=== PATIENT | female | born 1980 | race Caucasian/White ===

== ENCOUNTER 2017-01-08 12:26 | Emergency (ER) | payer OTHER ==
[2017-01-08 12:45] VITALS: BP 143/88; PULSE 87; TEMP 99.4; BMI 38.7
--- NOTE | 2017-01-08 13:23 | PDOC ---
History of Present Illness - History of Present Illness Initial Comments: 01/08/17 13:56 The patient is a 36 year old female, with a significant past medical history of kidney stones requiring lithotripsy and stent, who presents to the emergency department s/p sustaining a transverse laceration to the palmar aspect of her right thumb while at work at 12:15pm. The patient states she works as a dental assistant to the director and during a procedure which requires the temporary to required to be cut by a metal disc. She states her glove got stuck and the disc sliced her right thumb. She states that her patients blood may or may not have been present on the disc at the time she sustained the injury. She reports receiving HIV prophylaxis once in the past "many years ago." She reportedly felt ill for a few days following the treatment at that time, however, requests to be treated prophylactically considering she does not know the patient very well. She reports her last tetanus vaccine was about 10 years ago. She denies chest pain, shortness of breath, headache and dizziness. She denies fever, chills, nausea, vomit, diarrhea and constipation. She denies dysuria, frequency, urgency and hematuria. Allergies: NKDA <Layla Moreno - Last Filed: 01/08/17 13:56> - History of Present Illness Initial Comments: 01/09/17 07:19 Transverse laceration of the thumb, volar aspect, in the crease of the IPJ. Approximately 1 cm in length. Only the skin is involved. There is no bleeding. There is full flexion against resistance. There is no distal sensory deficit. There are no deep structures involved and no puncture evident. The wound was thoroughly scrubbed with saline, the skin was prepped with Betadine, local anesthesia was administered in the laceration was repaired using 4-0 nylon interrupted sutures. Patient tolerated the procedure well. The wound was dressed with bacitracin, 2 x 2, and tube gauze. Wound care instruction was reviewed. She is advised to follow-up if there is any sign of infection otherwise return to the ER for suture removal in one week. Fully ambulatory and in no pain upon discharge to follow-up as directed The patient requests HIV prophylaxis because her cut was sustained while doing dental work on a 60+-year-old man, his medical history is unknown. She was advised to attempt to contact the patient and request that he submit to hepatitis and HIV testing. She is uncertain whether be possible to contact the patient or whether he will consent to testing. As far she could tell, the patient appeared to be healthy and at no particular risk for disease. However, she requests HIV prophylaxis. The patient has an IUD, no missed menses, and denies the possibility of . She has had hepatitis immunizations and has tested HIV negative in the recent past, although she is not absolutely certain when. She has no medical problems and no active disease. She does not recall her last tetanus immunization The patient was counseled regarding HIV prophylaxis and referred to her primary physician, Dr. Ram, for further testing. Begun on PEP and instructed to discuss dosages and length of treatment with Dr. Ram. She agrees to follow-up within 2 days. Fully ambulatory and in no distress upon discharge to follow-up as directed. Patient appears completely reliable. <Sarmad Hernandez - Last Filed: 01/09/17 07:26> - General Chief Complaint: Injury Stated Complaint: RT THUMB LAC Time Seen by Provider: 01/08/17 12:44 Past History <Layla Moreno - Last Filed: 01/08/17 13:56> - Past Medical History Anemia: No Asthma: No Cancer: No Cardiac Disorders: No CVA: No COPD: No CHF: No Dementia: No Diabetes: No GI Disorders: No Disorders: Yes (KIDNEY STONES) HTN: No Hypercholesterolemia: No Kidney Stones: Yes Liver Disease: No Seizures: No Thyroid Disease: No - Surgical History Abdominal Surgery: No Appendectomy: No Cardiac Surgery: No Cholecystectomy: No Lung Surgery: No Neurologic Surgery: No Orthopedic Surgery: No - Immunization History Immunization Up to Date: No - Suicide/Smoking/Psychosocial Hx Smoking Status: No Smoking History: Former smoker Have you smoked in the past 12 months: No Number of Cigarettes Smoked Daily: 0 If you are a former smoker, when did you quit?: 5-10 yrs ago Information on smoking cessation initiated: No Hx Alcohol Use: No Drug/Substance Use Hx: No Substance Use Type: None Hx Substance Use Treatment: No <Sarmad Hernandez - Last Filed: 01/09/17 07:26> - Past Medical History Allergies/Adverse Reactions: Allergies Allergy/AdvReac Type Severity Reaction Status Date / Time No Known Drug Allergies Allergy Verified 01/08/17 12:46 Home Medications: Ambulatory Orders NK [No Known Home Medication] 01/08/17 Review of Systems - Review of Systems Able to Perform ROS?: Yes Comments:: 01/08/17 13:58 CONSTITUTIONAL: Absent: fever, chills, diaphoresis, generalized weakness, malaise, loss of appetite HEENT: Absent: rhinorrhea, nasal congestion, throat pain, throat swelling, difficulty swallowing, mouth swelling, ear pain, eye pain, visual Changes CARDIOVASCULAR: Absent: chest pain, syncope, palpitations, irregular heart rate, lightheadedness , peripheral edema MUSCULOSKELETAL: Absent: myalgia, arthralgia, joint swelling SKIN: (+) laceration to right thumb. Absent: rash, itching, pallor HEMATOLOGIC/IMMUNOLOGIC: Absent: easy bleeding, easy bruising, lymphadenopathy, frequent infections NEUROLOGIC: Absent: headache, focal weakness or paresthesia, dizziness, unsteady gait, seizure, mental status changes, bladder or bowel incontinence PSYCHIATRIC: Absent: anxiety, depression, suicidal or homicidal ideation, hallucinations <Layla Moreno - Last Filed: 01/08/17 13:56> *Physical Exam - Vital Signs Last Vital Signs Temp Pulse Resp BP Pulse Ox 99.4 F 87 20 143/88 100 01/08/17 12:27 01/08/17 12:27 01/08/17 12:27 01/08/17 12:27 01/08/17 12:27 - Physical Exam Comments: 01/08/17 13:59 GENERAL: Well developed, well nourished. Awake and alert. No acute distress. MUSCULOSKELETAL Normal range of motion at all joints. No bony deformities or tenderness. No CVA tenderness. EXTREMITIES: No cyanosis. No clubbing. No edema. No calf tenderness. SKIN: (+) there is a transverse, approximately 1.5cm, superficial laceration to the palmar aspect in the crease of right proximal 1st digit. no FB present. Warm and dry. Normal capillary refill. No rashes. No jaundice. NEUROLOGICAL: Alert, awake, appropriate. Cranial nerves 2-12 intact. No motor deficits in the upper extremities and lower extremities. Normoreflexic in the upper and lower extremities. Normal speech. Gait is normal without ataxia. <Layla Moreno - Last Filed: 01/08/17 13:56> - Vital Signs Last Vital Signs Temp Pulse Resp BP Pulse Ox 99.4 F 87 20 143/88 100 01/08/17 12:27 01/08/17 12:27 01/08/17 12:27 01/08/17 12:27 01/08/17 12:27 <Sarmad Hernandez - Last Filed: 01/09/17 07:26> Procedures - Laceration/Wound Repair Right Proximal 1st digit Wound Length: to 2.5 cm (1.5cm-2.0cm) Wound Explored: clean, no foreign body present Wound's Depth, Shape: superficial Irrigated w/ Saline: Yes Betadine Prep: Yes Anesthesia: 1% Lidocaine Wound Repaired With: Sutures Suture Size/Type: 4:0 Number of Sutures: 3 Layer Closure: No Sterile Dressing Applied: Yes <Layla Moreno - Last Filed: 01/08/17 13:56> *DC/Admit/Observation/Transfer - Attestations Scribe Attestion: 01/08/17 14:05 Documentation prepared by Layla Moreno, acting as medical art therapist for Sarmad Lima MD <Layla Moreno - Last Filed: 01/08/17 13:56> - Discharge Dispostion Admit: No <Sarmad Hernandez - Last Filed: 01/09/17 07:26> Diagnosis at time of Disposition: Exposure to blood Laceration of thumb Qualifiers: Encounter type: initial encounter Damage to nail status: without damage Foreign body presence: without foreign body Laterality: right Qualified Code(s) : S61.011A - Laceration without foreign body of right thumb without damage to nail, initial encounter - Discharge Dispostion Disposition: HOME Condition at time of disposition: Improved - Patient Instructions Printed Discharge Instructions: DI for Laceration Repair -- Finger Additional Instructions: See Dr. Ram your primary physician within 2 days for blood testing and further medication administration. Take medication administered today as directed. Try to have your patient tested for hepatitis and HIV. Take care of your wound as directed. Change the dressing in 2 days. Keep covered and use antibiotic ointment. If there is sign of infection, return to the ER. Otherwise return for suture removal in 7 days. - Post Discharge Activity Forms/Work/School Notes: Back to Work
[2017-01-08] MEDS ORDERED: HIV POST EXPOSURE PROPHYLAXIS KIT NR ONE (13:44)
[2017-01-08] MEDS ORDERED: DIPHTH,PERTUSS(ACELL),TET 0.5 ML DISP.SYRIN IM ONE (13:54)
[2017-01-08] MEDS ORDERED: HIV POST EXPOSURE PROPHYLAXIS KIT PO ONE (13:55)
== END 2017-01-08 14:21 | disposition home or self-care (01) ==
LOC: FER 12:26
PROC: 0HQFXZZ Repair Right Hand Skin, External Approach (ICD-10-PCS; principal; 2017-01-08)
PROC: 3E0234Z Introduction of Serum, Toxoid and Vaccine into Muscle, Percutaneous Approach (ICD-10-PCS; 2017-01-08)
DX: S61.011A Laceration without foreign body of right thumb without damage to nail, initial encounter (principal); Z77.21 Contact with and (suspected) exposure to potentially hazardous body fluids; Z87.891 Personal history of nicotine dependence; W27.8XXA Contact with other nonpowered hand tool, initial encounter; Y93.89 Activity, other specified; Y92.531 Health care provider office as the place of occurrence of the external cause; Y99.0 Civilian activity done for income or pay
CPT/HCPCS: 90715; 99282-25

== ENCOUNTER 2017-01-17 09:27 | Emergency (ER) | payer OTHER ==
[2017-01-17 09:31] VITALS: BP 119/80; PULSE 78; TEMP 98.8; BMI 39.7
--- NOTE | 2017-01-17 09:53 | PDOC ---
Suture Removal/Wound Check HPI - History of Present Illness Chief Complaint: Suture/Staple Removal(Here) Stated Complaint: SUTURE REMOVAL RT THUMB Time Seen by Provider: 01/17/17 09:35 - Onset of Previous Treatment Comment:: 01/17/17 09:50 Sutures were removed 2 right thumb. Wound is healed. No sign of infection. Dressed with bacitracin and Band-Aid. Numbness of the fingertip persists. Referred to Dr. Stephens for further evaluation. Past History - Past Medical History Allergies/Adverse Reactions: Allergies Allergy/AdvReac Type Severity Reaction Status Date / Time No Known Drug Allergies Allergy Verified 01/17/17 09:28 Home Medications: Ambulatory Orders Amoxicillin/Potassium Clav [Amox-Clav 875-125 mg Tablet] 1 each PO BID 01/17/17 Anemia: No Asthma: No Cancer: No Cardiac Disorders: No CVA: No COPD: No CHF: No Dementia: No Diabetes: No GI Disorders: No Disorders: Yes (KIDNEY STONES) HTN: No Hypercholesterolemia: No Kidney Stones: Yes Liver Disease: No Seizures: No Thyroid Disease: No - Surgical History Abdominal Surgery: No Appendectomy: No Cardiac Surgery: No Cholecystectomy: No Lung Surgery: No Neurologic Surgery: No Orthopedic Surgery: No - Immunization History Immunization Up to Date: No - Suicide/Smoking/Psychosocial Hx Smoking Status: No Smoking History: Former smoker Have you smoked in the past 12 months: No Number of Cigarettes Smoked Daily: 0 If you are a former smoker, when did you quit?: 5-10 yrs ago Information on smoking cessation initiated: No Hx Alcohol Use: No Drug/Substance Use Hx: No Substance Use Type: None Hx Substance Use Treatment: No *DC/Admit/Observation/Transfer Diagnosis at time of Disposition: Laceration of thumb Qualifiers: Encounter type: subsequent encounter Damage to nail status: without damage Foreign body presence: without foreign body Laterality: right Qualified Code(s) : S61.011D - Laceration without foreign body of right thumb without damage to nail, subsequent encounter; S61.011D - Laceration without foreign body of right thumb without damage to nail, subsequent encounter - Discharge Dispostion Disposition: HOME Condition at time of disposition: Improved Admit: No - Referrals Referrals: Thomas Stephens MD [Staff Physician] - - Patient Instructions Printed Discharge Instructions: DI for Suture Removal Additional Instructions: If any sign of infection develops, return to the ER or see primary physician for additional treatment See Dr. Stephens, hand specialist, for persistent numbness in the fingertip. This may be a nerve injury that can be treated.. - Post Discharge Activity Forms/Work/School Notes: Back to Work
== END 2017-01-17 10:03 | disposition home or self-care (01) ==
LOC: FER 09:27
DX: Z48.02 Encounter for removal of sutures (principal)
CPT/HCPCS: 99282-25

== ENCOUNTER 2017-12-23 08:35 | Emergency (ER) | payer OTHER ==
[2017-12-23 08:41] VITALS: TEMP 98.3; BMI 33.6
--- NOTE | 2017-12-23 09:37 | PDOC ---
History of Present Illness - General Chief Complaint: Pain Stated Complaint: PAIN Time Seen by Provider: 12/23/17 09:00 History Source: Patient Exam Limitations: No Limitations - History of Present Illness Travel History: No Initial Comments: 12/23/17 09:35 37y hx of kidney stones presents with L flank pain starting 3 days ago. The patient states the pain started gradually in the left flank, she has been taking Motrin without significant improvement however this morning the pain worsened dramatically so she came for evaluation. The patient states that the pain radiates to the left lower quadrant, is consistent with prior kidney stones that she had approx 1 year ago requiring lithotripsy. The patient denies any fever, chills, dysuria, nausea, vomiting, chest pain, shortness of breath. She states that she is to 3 days and her most current menses, so is unsure there is any hematuria. Uro: [place] Past History - Past Medical History Allergies/Adverse Reactions: Allergies Allergy/AdvReac Type Severity Reaction Status Date / Time No Known Drug Allergies Allergy Verified 12/23/17 08:36 Home Medications: Ambulatory Orders Cyclobenzaprine HCl [Flexeril 10 mg] 10 mg PO BID PRN #15 tablet 12/23/17 Ibuprofen 800 mg PO ASDIR PRN 12/23/17 Anemia: No Asthma: No Cancer: No Cardiac Disorders: No CVA: No COPD: No CHF: No Dementia: No Diabetes: No GI Disorders: No Disorders: Yes (KIDNEY STONES) HTN: No Hypercholesterolemia: No Kidney Stones: Yes Liver Disease: No Seizures: No Thyroid Disease: No - Surgical History Abdominal Surgery: No Appendectomy: No Cardiac Surgery: No Cholecystectomy: No Lung Surgery: No Neurologic Surgery: No Orthopedic Surgery: No - Immunization History Immunization Up to Date: No - Suicide/Smoking/Psychosocial Hx Smoking Status: No Smoking History: Never smoked Have you smoked in the past 12 months: No Number of Cigarettes Smoked Daily: 0 If you are a former smoker, when did you quit?: 5-10 yrs ago Hx Alcohol Use: No Drug/Substance Use Hx: No Substance Use Type: None Hx Substance Use Treatment: No Review of Systems - Review of Systems Able to Perform ROS?: Yes Comments:: 12/23/17 09:52 Constitutional - no reported Fever, Chills, HEENT: no reported vision changes, sore throat Respiratory: no reported cough, sob, hemoptysis Cardiac: no reported chest pain, palpitations, light headedness, leg swelling Abd/GI: +L flank pain no reported abd pain, nausea, vomiting, blood per rectum, melena, diarrhea : no reported dysuria, frequency, discharge Musculskelatal - no reported back pain, joint swelling skin - no reported bruising, erythema, rash neurological: no reported headache, numbness, focal weakness, tingling, ataxia, hematologic: no reported easy bruising, easy bleeding *Physical Exam - Vital Signs Last Vital Signs Temp Pulse Resp BP Pulse Ox 98.3 F 79 18 118/73 98 12/23/17 08:37 12/23/17 08:37 12/23/17 08:37 12/23/17 08:37 12/23/17 08:37 - Physical Exam Comments: 12/23/17 09:52 GENERAL: The patient is awake, alert, and fully oriented, uncomfortable appearing HEAD: Normocephalic, atraumatic. EYES: extraocular movements intact, sclera anicteric, conjunctiva clear. ENT: Normal voice, Moist mucous membranes. NECK: Normal range of motion, supple LUNGS: Breath sounds equal, clear to auscultation bilaterally. No wheezes, no rhonchi, no rales. HEART: Regular rate and rhythm, normal S1 and S2 without murmur, rub or gallop. ABDOMEN: Soft, nontender, normoactive bowel sounds. No guarding, no rebound. No CVA tenderness BACK: no focal midline tenderness, mild paraspinal tenderness on palpation on L lumbar region EXTREMITIES: Normal range of motion, NEUROLOGICAL: No facial assymetry, Normal speech, PSYCH: Normal mood, normal affect. SKIN: Warm, Dry, normal turgor, ED Treatment Course - LABORATORY CBC & Chemistry Diagram: 12/23/17 09:57 12/23/17 09:57 Medical Decision Making - Medical Decision Making 12/23/17 09:53 37-year-old female history of kidney stones presenting with 3 days of left flank pain consistent with prior kidney stones without any signs of infection. On exam the patient has an unremarkable exam although she does appear uncomfortable. Will obtain UA to rule out hematuria and infection, will check basic labs. will start w/ ultrasound, fluids and analgesia for symptomatically relief 10/01/18 16:20 labs rviewed US and CT reviewed no signs of hydro or ureteral stones suspect her pain may be msk in anture as it is reproducible on palpation and worsens with movement will dx with flexeril, nsaids will have pt fu with pmd return precautions wree discussed I discussed the physical exam findings, ancillary test results and final diagnoses with the patient. I answered all of the patient's questions. The patient was satisfied with the care received and felt comfortable with the discharge plan and treatment plan. The patient will call their primary care physician within 24 hours to arrange follow-up and will return to the Emergency Department with any new, persistent or worsening symptoms. *DC/Admit/Observation/Transfer Diagnosis at time of Disposition: Spasm of back muscles Back pain Qualifiers: Back pain location: low back pain Chronicity: acute Back pain laterality: left Sciatica presence: without sciatica Qualified Code(s): M54.5 - Low back pain - Discharge Dispostion Disposition: HOME Condition at time of disposition: Improved Decision to Admit order: No - Prescriptions Prescriptions: Cyclobenzaprine HCl [Flexeril 10 mg] 10 mg PO BID PRN #15 tablet PRN Reason: Back Pain - Referrals Referrals: Josie Ram MD [Primary Care Provider] - - Patient Instructions Printed Discharge Instructions: DI for Low Back Pain Additional Instructions: Return to the emergency department immediately with ANY new, persistent or worsening symptoms including numbness, tingling, weakness, fevers or any other concerns. Take ibuprofen (400mg)/tylenol(650mg) every 6 hours for 2 days. Take the flexeril if you still have pain/discomfort. Apply heat to your sore muscles. You MUST call and follow up with your doctor tomorrow for further evaluation of your symptoms. Your emergency department visit is not complete without a followup with your doctor for reevaluation.. Results were discussed with you. Please make sure your doctor reviews the results of your emergency evaluation. Print Language: SOUTH SUDANESE - Post Discharge Activity Forms/Work/School Notes: Back to Work
[2017-12-23] MEDS ORDERED: SODIUM CHLORIDE 1,000 ML IV ONE (09:39)
[2017-12-23] MEDS ORDERED: morphine CARPU-JECT 2 MG/1 ML DISP.SYRIN IVPUSH ONE (09:39)
[2017-12-23] MEDS ORDERED: MORPHINE SULFATE 2 MG/ML VIAL ONE (10:06)
[2017-12-23 10:31] LABS: BASO % 0.7 % (0-2.0); EOS % 1.6 % (0-4.5); HEMATOCRIT 39.4 % (32.4-45.2); HEMOGLOBIN 12.9 GM/dL (10.7-15.3); LYMPH % 37.6 % (8-40); MCH 28.6 pg (25.7-33.7); MCHC 32.7 g/dl (32.0-36.0); MEAN CELL VOLUME 87.6 fl (80-96); MEAN PLT VOLUME 8.2 fl (7.5-11.1); MONO % 6.9 % (3.8-10.2); NEUT % 53.2 % (42.8-82.8); PLATELET COUNT 334 K/MM3 (134-434); RDW 13.6 % (11.6-15.6); WHITE BLOOD COUNT 7.1 K/mm3 (4.0-10.0)
[2017-12-23 10:51] LABS: ALBUMIN 3.5 g/dl (3.4-5.0); ALK PHOS 61 U/L (45-117); ANION GAP 7 MMOL/L (8-16); BILIRUBIN,TOTAL 0.2 mg/dL (0.2-1); BLOOD UREA NITROGEN 10 mg/dL (7-18); CHLORIDE 109 mmol/L (98-107); CO2 24 mmol/L (21-32); CREATININE 0.6 mg/dL (0.55-1.3); GLUCOSE,RANDOM 95 mg/dL (74-106); POTASSIUM 4.2 mmol/L (3.5-5.1); SGOT/AST 14 U/L (15-37); SGPT/ALT 31 U/L (13-61); SODIUM 140 mmol/L (136-145)
[2017-12-23 10:54] LABS: URINE APPEARANCE CLEAR; URINE BILIRUBIN NEGATIVE (<2.0 mg/dL); URINE COLOR STRAW; URINE GLUCOSE (UA) NEGATIVE (NEGATIVE); URINE KETONE NEGATIVE (NEGATIVE); URINE NITRITE NEGATIVE (NEGATIVE); URINE PROTEIN NEGATIVE (NEGATIVE); URINE UROBILINOGEN NEGATIVE mg/dL (0.2-1.0)
[2017-12-23 10:55] LABS: URINE LEUK ESTERASE 1+ (NEGATIVE)
[2017-12-23] MEDS ORDERED: KETOROLAC TROMETHAMINE 30 MG/1 ML VIAL IVPUSH ONE (10:55)
[2017-12-23] MEDS ORDERED: KETOROLAC TROMETHAMINE 30 MG/1 ML VIAL ONE (10:58)
[2017-12-23 10:59] LABS: EPI CELLS RARE /HPF (FEW); URINE MUCUS RARE
[2017-12-23] MEDS ORDERED: morphine CARPU-JECT 4 MG/1 ML DISP.SYRIN IVPUSH ONE (13:29)
[2017-12-23] MEDS ORDERED: morphine SULFATE 4 MG/ML VIAL ONE (14:17)
[2017-12-23 17:01] VITALS: BP 99/55; PULSE 64
== END 2017-12-23 17:09 | disposition home or self-care (01) ==
LOC: JER 08:35
PROC: 3E0337Z Introduction of Electrolytic and Water Balance Substance into Peripheral Vein, Percutaneous Approach (ICD-10-PCS; principal; 2017-12-23)
PROC: 3E0333Z Introduction of Anti-inflammatory into Peripheral Vein, Percutaneous Approach (ICD-10-PCS; 2017-12-23)
PROC: 3E033NZ Introduction of Analgesics, Hypnotics, Sedatives into Peripheral Vein, Percutaneous Approach (ICD-10-PCS; 2017-12-23)
PROC: 3E033NZ Introduction of Analgesics, Hypnotics, Sedatives into Peripheral Vein, Percutaneous Approach (ICD-10-PCS; 2017-12-23)
DX: M62.830 Muscle spasm of back (principal); Z87.442 Personal history of urinary calculi
CPT/HCPCS: 36415; 74176; 76775-TC; 80053; 81003; 81015; 84703; 85025; 96361; 96374; 96375; 99282-25; J7030

== ENCOUNTER 2018-05-27 09:10 | Emergency (ER) | payer OTHER ==
[2018-05-27 09:26] VITALS: TEMP 98.1; BMI 39.1
[2018-05-27 10:20] LABS: BASO % 0.3 % (0-2.0); EOS % 0.6 % (0-4.5); HEMATOCRIT 37.2 % (32.4-45.2); HEMOGLOBIN 12.8 GM/dL (10.7-15.3); LYMPH % 31.4 % (8-40); MCH 30.6 pg (25.7-33.7); MCHC 34.6 g/dl (32.0-36.0); MEAN CELL VOLUME 88.6 fl (80-96); MONO % 6.4 % (3.8-10.2); NEUT % 61.3 % (42.8-82.8); PLATELET COUNT 349 K/MM3 (134-434); RDW 12.8 % (11.6-15.6); WHITE BLOOD COUNT 6.7 K/mm3 (4.0-10.0)
[2018-05-27 10:41] LABS: INR 0.97 (0.83-1.09); PROTHROMBIN TIME (PATIENT) 11.5 SEC (9.7-13.0)
[2018-05-27 10:56] LABS: ALBUMIN 3.6 g/dl (3.4-5.0); ALK PHOS 64 U/L (45-117); ANION GAP 8 MMOL/L (8-16); BILIRUBIN,TOTAL 0.4 mg/dL (0.2-1); BLOOD UREA NITROGEN 11 mg/dL (7-18); CHLORIDE 104 mmol/L (98-107); CO2 27 mmol/L (21-32); CREATININE 0.7 mg/dL (0.55-1.3); GLUCOSE,RANDOM 92 mg/dL (74-106); MAGNESIUM 2.2 mg/dL (1.8-2.4); POTASSIUM 4.1 mmol/L (3.5-5.1); SGOT/AST 13 U/L (15-37); SGPT/ALT 29 U/L (13-61); SODIUM 139 mmol/L (136-145)
[2018-05-27] MEDS ORDERED: KETOROLAC TROMETHAMINE 30 MG/1 ML VIAL IVPUSH ONE (12:19)
[2018-05-27] MEDS ORDERED: KETOROLAC TROMETHAMINE 30 MG/1 ML VIAL ONE (12:39)
[2018-05-27 13:20] VITALS: BP 114/76; PULSE 75
--- NOTE | 2018-05-27 13:45 | EKG ---
Test Reason : Blood Pressure : / mmHG Vent. Rate : 076 BPM Atrial Rate : 076 BPM P-R Int : 142 ms QRS Dur : 084 ms QT Int : 400 ms P-R-T Axes : 035 038 027 degrees QTc Int : 450 ms NORMAL SINUS RHYTHM NORMAL ECG WHEN COMPARED WITH ECG OF 30-NOV-2017 20:52, NO SIGNIFICANT CHANGE WAS FOUND Confirmed by MD Hayes Daniel ([id number]) on 05/27/2018 1:45:38 PM Referred By: Confirmed By:Richy Hayes MD
== END 2018-05-27 13:27 | disposition home or self-care (01) ==
LOC: JER 09:10
PROC: 3E0333Z Introduction of Anti-inflammatory into Peripheral Vein, Percutaneous Approach (ICD-10-PCS; principal; 2018-05-27)
DX: R07.89 Other chest pain (principal)
CPT/HCPCS: 36415; 71045-TC-FY; 80053; 82550; 83735; 84484; 84703; 85025; 85379; 85610; 93005; 93010; 93971-TC; 96374; 99285-25

== ENCOUNTER 2019-01-20 09:10 | Day surgery (SDC) | payer OTHER ==
[2019-01-19 16:01] VITALS: BMI 40.4
[2019-01-20 11:01] VITALS: TEMP 98.6
[2019-01-20 14:09] VITALS: BP 103/61; PULSE 67
--- NOTE | 2019-01-21 19:22 | PATH ---
Surgical Pathology Report Patient Name: GARY GASTON [facility]. Rec. #: [id number] /Age/Gender: 1980 (Age: 38) / F Account: [id number] Location: U-ENDOSCOPY Taken: 01/20/2019 Received: 01/20/2019 Reported: 01/21/2019 Physicians: Jung Davis D.O. Specimen(s) Received POLYPS RECTUM Clinical History Chronic constipation, rectal bleeding Postoperative diagnosis: Colon polyps, hemorrhoids Final Diagnosis RECTAL POLYPS, POLYPECTOMY: HYPERPLASTIC POLYP, TWO FRAGMENTS. Electronically Signed Josephine Tolentino M.D. Gross Description Received in formalin, labeled "polyps rectum" are 5 snider, irregular portions of soft tissue ranging from 0.1-0.5 cm. in greatest dimension. The specimens are submitted in toto in one cassette. DL/01/20/2019 saudi/01/20/2019
== END 2019-01-20 12:02 | disposition home or self-care (01) ==
LOC: JASU-ENDO 09:10
PROVIDERS: ATTEND Internal Medicine Gastroenterology
PROC: 0DBP8ZX Excision of Rectum, Via Natural or Artificial Opening Endoscopic, Diagnostic (ICD-10-PCS; principal; 2019-01-20 10:00)
DX: K92.1 Melena (principal); D12.8 Benign neoplasm of rectum; K64.8 Other hemorrhoids
CPT/HCPCS: 84703; 88305-TC

== ENCOUNTER 2019-12-27 19:30 | Emergency (ER) | payer OTHER ==
[2019-12-27 19:38] VITALS: BP 121/71; PULSE 89; TEMP 99.1; BMI 39.1
--- NOTE | 2019-12-27 19:40 | PDOC ---
History of Present Illness - General Chief Complaint: Pain Stated Complaint: abdominal cramping/left flank pain Time Seen by Provider: 12/27/19 19:36 History Source: Patient Exam Limitations: No Limitations - History of Present Illness Initial Comments: 12/27/19 19:54 This is an obese 39-year-old female with history of renal colic x2 in the past. Patient comes in complaining of intermittent left flank pain and more constant epigastric pain x2 days. Patient said pain is associated with some nausea and vomiting. Patient also said she has been having some diarrhea. Patient denies any fever or chills. Allergies: as per nursing notes Past Medical History: Renal colic as per HPI Social history: Lives with family. No smoking. No alcohol. No illicit drugs. Surgical history: None General: No fevers or chills, no weakness, no weight loss HEENT: No change in vision. No sore throat,. No ear pain CardioVascular: no chest discomfort. No shortness of breath Respiratory:No cough, or wheezing. Gastrointestinal: + nausea, +vomiting, + diarrhea no constipation, No rectal bleeding + left flank pain Genitourinary: No dysuria, hematuria, or frequency Musculoskeletal: No joint or muscle pain or swelling Neurologic: No headache, vertigo, dizziness or loss of consciousness Psychiatric: nor depression Skin: No rashes or easy bruising Endocrine: no increased thirst or abnormal weight change Allergic: no skin or latex allergy All other systems reviewed and normal Exam: General: Well-nourished well-developed individual, no acute distress HEENT: Throat: Normal, tonsils normal, no erythema or exudate Neck: Supple, no meningeal signs, no lymphadenopathy Eyes::Pupils equal reactive and round, extraocular motion intact Chest: Nontender to palpation Cardiac: S1-S2 normal, regular rate and rhythm, no murmurs rubs or gallops Respiratory: Lungs clear to auscultation bilateral Abdomen: Soft, nondistended, normal bowel sounds, there is some mild tenderness in the palpation left upper quadrant and epigastric area as well as left flank area., There is no guarding or rebound Extremities: Warm, dry, no cyanosis, clubbing, or edema Skin: No rashes Neuro: Alert and oriented x3, CN II - XII intact, nonfocal exam with normal strength, normal sensation, normal reflexes, normal gait, Psych: Normal mood and affect Assessment and plan: Work-up initiated including CBC, comp, UA, urine culture and urine . Patient given Toradol, Zofran, fluids and Pepcid. Patient's work-up was unremarkable including negative abdominal CT. Her daughter abdominal CT did have a 1 mm and a 2 mm stone in the medullary tissues of the kidneys but nothing in the collection system specifically no hydronephrosis hydroureter or any evidence of a stone within the collection system. 12/27/19 23:45 Past History - Medical History Allergies/Adverse Reactions: Allergies Allergy/AdvReac Type Severity Reaction Status Date / Time No Known Drug Allergies Allergy Verified 12/27/19 19:32 Home Medications: Ambulatory Orders Omeprazole 20 mg PO DAILY #15 tab.rap.dr 12/27/19 Ondansetron [Zofran *Odt*] 8 mg SL TID #12 od.tablet 12/27/19 Anemia: No Asthma: No Cancer: No Cardiac Disorders: No CVA: No COPD: No CHF: No Dementia: No Diabetes: No GI Disorders: Yes (CHRONIC CONSTIPATION, RECTAL BLEEDING) Disorders: Yes (KIDNEY STONES) HTN: No Hypercholesterolemia: No Kidney Stones: Yes Liver Disease: No Seizures: No Thyroid Disease: No - Surgical History Abdominal Surgery: No Appendectomy: No Cardiac Surgery: No Cholecystectomy: No Lung Surgery: No Neurologic Surgery: No Orthopedic Surgery: No - Reproductive History Is Patient Now?: No - Immunization History Immunization Up to Date: No - Psycho-Social/Smoking History Smoking Status: No Smoking History: Never smoked Have you smoked in the past 12 months: No Number of Cigarettes Smoked Daily: 0 If you are a former smoker, when did you quit?: 5-10 yrs ago Information on smoking cessation initiated: No - Substance Abuse Hx (Audit-C & DAST Scrn) How often the patient has a drink containing alcohol: Never Score: In Men: 4 or > Positive; In Women: 3 or > Positive: 0 Screen Result (Pos requires Nsg. Audit-10AR): Negative In the last yr the pt used illegal drug/Rx for NonMed reason: No Score: Yes response is considered Positive: 0 Screen Result (Positive result requires Nsg. DAST-10): Negative *Physical Exam - Vital Signs Last Vital Signs Temp Pulse Resp BP Pulse Ox 99.1 F 89 18 121/71 99 12/27/19 19:33 12/27/19 19:33 12/27/19 19:33 12/27/19 19:33 12/27/19 19:33 ED Treatment Course - LABORATORY CBC & Chemistry Diagram: 12/27/19 19:50 12/27/19 19:50 Discharge - Discharge Information Problems reviewed: Yes Clinical Impression/Diagnosis: Abdominal pain Qualifiers: Abdominal location: upper abdomen, unspecified Qualified Code(s): R10.10 - Upper abdominal pain, unspecified Condition: Stable Disposition: HOME - Admission No - Additional Discharge Information Prescriptions: Ondansetron [Zofran *Odt*] 8 mg SL TID #12 od.tablet - Follow up/Referral - Patient Discharge Instructions Additional Instructions: Take on omeprazole tablet a day for the pain, You can take Zofran 1 tablet oral dissolving as needed for the nausea take it as often as 3 times a day. Follow-up with your primary care doctor. Return to the emergency department immediately with ANY new, persistent or worsening symptoms. Continue any medications as previously prescribed by your physician. You should follow up with your primary doctor as soon as possible regarding today's emergency department visit. . Please make sure your doctor reviews the results of your emergency evaluation. Thank you for coming to the Emergency Department today for your care. It was a pleasure to see you today. Please note that your evaluation is INCOMPLETE until you follow-up with your doctor. - Post Discharge Activity
[2019-12-27] MEDS ORDERED: SODIUM CHLORIDE 1,000 ML IV ONE (19:45)
[2019-12-27] MEDS ORDERED: FAMOTIDINE 20 MG/50 ML IVPB 20 MG/50 ML MG IVPB ONE ×2 (19:53→19:55)
[2019-12-27] MEDS ORDERED: ONDANSETRON 4 MG/2 ML VIAL IVPB ONE (19:53)
[2019-12-27] MEDS ORDERED: KETOROLAC TROMETHAMINE 30 MG/1 ML VIAL IVPUSH ONE (19:53)
[2019-12-27] MEDS ORDERED: KETOROLAC TROMETHAMINE 30 MG/1 ML VIAL ONE (19:55)
[2019-12-27] MEDS ORDERED: ONDANSETRON 4 MG/2 ML VIAL ONE (19:56)
[2019-12-27] MEDS ORDERED: ONDANSETRON 4 MG/2 ML VIAL IVPUSH ONE (20:02)
--- OUTSIDE RECORDS SUMMARY | 2019-12-27 20:08 | XMS ---
:1980 Author Organization [facility] Care Team Providers Name Role Phone Dandre Costa MD Unavailable Unavailable Deepali Balbuena MD Unavailable Unavailable Androne, Gary S Unavailable Unavailable Androne, S Unavailable Unavailable Androne, S Unavailable Unavailable Androne, S Unavailable Unavailable Androne, S Unavailable Unavailable Androne, S Unavailable Unavailable Androne, S Unavailable Unavailable Androne, S Unavailable Unavailable DEVIKA Olivera Unavailable Unavailable MD Vipin Unavailable Unavailable Josué Unavailable Unavailable MD Tuan Unavailable Unavailable Tenisha, DO Unavailable Unavailable Anson Unavailable Unavailable Re-disclosure Warning The records that you are about to access may contain information from federally- assisted alcohol or drug abuse programs. If such information is present, then the following federally mandated warning applies: This information has been disclosed to you from records protected by federal confidentiality rules (42 CFR part 2). The federal rules prohibit you from making any further disclosure of this information unless further disclosure is expressly permitted by the written consent of the person to whom it pertains or as otherwise permitted by 42 CFR part 2. A general authorization for the release of medical or other information is NOT sufficient for this purpose. The Federal rules restrict any use of the information to criminally investigate or prosecute any alcohol or drug abuse patient.The records that you are about to access may contain highly sensitive health information, the redisclosure of which is protected by Article 27-F of the [facility] Public Health law. If you continue you may haveaccess to information: Regarding HIV / AIDS; Provided by facilities licensed or operated by the [facility] Office of Mental Health; or Provided by the [facility] Office for People With Developmental Disabilities. If such information is present, then the following [facility] mandated warning applies: This information has been disclosed to you from confidential records which are protected by state law. State law prohibits you from making any further disclosure of this information without the specific written consent of the person to whom it pertains, or as otherwise permitted by law. Any unauthorized further disclosure in violation of state law may result in a fine or shelter sentence or both. A general authorization for the release of medical or other information is NOT sufficient authorization for further disclosure. Advance Directives Directive Description Technical Education Teacher Nutrition Consultant Status Observation Data S ource(s) Description Advance No completed [place] [facility] Advance No completed [place] [facility] Allergies and Adverse Reactions Type Description Substance Reaction Status Data Source(s ) 3 NO KNOWN Clindamycin 150 NEXTGEN ALLERGIES MG Oral Tablet ([facility] [Clintabs] [facility]) Drug allergy No Known Drug No Known Drug NO KNOWN [place] Allergies Allergies [facility] No Known No Known No Known eCW3 ([place] Allergies Allergies [facility]) Encounters Encounter Providers Location Date Indications Data Source(s ) Attender: Gary 10/20/2019 [facility] ([facility] 12:00:00 AM ED Medical, ) Office Outpatient Attender: Adi 09/15/2019 10:50:00 NEXTGEN ([facility] GoldmanReferrer: Adi ARREAGA [facility] Medical - [facility]) Inpatient Attender: Dandre Costa 06/25/2019 04:42:00 PUI [place] MDAttender: Tariq PM EDT - 06/30/[address] [place] [address] ChaudhryAttender: Deepali 11:39:00 AM EDT Sree MDAttender: Beth Steven DOAdmitter: Deepali Balbuena MD PUI Patient discharged. Inpatient Attender: Enrique 02/12/2019 07:45:00 LUMBAR SPIN AL [place] Vipin MDAttender: AM EST - 02/16/2019 [facility] 05:41:00 PM EST MDAdmitter: Enrique Lew MDConsultant: Enrique Lew MD LUMBAR SPINAL STENOSIS Patient discharged. 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 IIV4 02/16/2019 completed influenza, injectable, [place] 01:47:00 PM EST quadrivalent, preserv Hos pital free New in 2011. IIV4 02/16/2019 completed influenza, injectable, [place] 01:47:00 PM EST quadrivalent, preserv Hos pital free Medications Medication Brand Start Product Dose Route Administrative Pharmacy [facility] Indications Reaction Description Data Name Date Form Instructions Instructions Source(s) Dextrometho Guaife 06/29/ LIQUID 10 mL ORAL active [place] rphan nesin/ 2019 [place] Hydrobromid Dextro 08:31: Hosp ital e 2 MG/ML / methor 00 AM Guaifenesin madden EDT 20 MG/ML Oral Solution Guaifenesin /Dextrometh orphan doxycycline Doxycy 06/29/ CAPSULE 100 ORAL active [place] hyclate 100 alcala 2020 mg [place] MG Oral Monohy 08:31: Hospital Capsule drate 00 AM [Vibramycin EDT ] Doxycycline Monohydrate Benzocaine Benzoc 06/29/ LOZENGE 1 ORAL active [place] 15 MG / nicole/M 2020 [place] Menthol 3.6 enth/C 08:31: Hosp ital MG Oral etylpy [address] Cl EDT [Cepacol Sore Throat Pain Relief] Benzocaine/ Menth/Cetyl pyrd Cl Acetaminoph Acetam 02/16/ TABLET 975 ORAL complet [place] en 325 MG inophe 2019 mg ed [place] Oral Tablet n 09:58: Hospit al 00 AM EST Oxycodone Oxycod 02/16/ TABLET mg ORAL complet W stephania Hydrochlori one 2018 ed [place] de 5 MG Hcl 09:58: Hospital Oral Tablet 00 AM Oxycodone EST Hcl Oxycodone Oxycod 02/16/ TABLET mg ORAL complet W stephania Hydrochlori one 2018 ed [place] de 5 MG Hcl 09:58: Hospital Oral Tablet 00 AM Oxycodone EST Hcl Diazepam 5 Diazep 02/16/ TABLET 5 mg ORAL complet [place] MG Oral am 2018 ed [place] Tablet 09:58: Hospital 00 AM EST Docusate Docusa 02/16/ CAPSULE 100 ORAL complet W stephania Sodium 100 te 2019 mg ed [place] MG Oral Sodium 09:58: Hospital Capsule 00 AM [DOK] EST Docusate Docusa 02/16/ CAPSULE 100 ORAL complet W stephania Sodium 100 te 2019 mg ed [place] MG Oral Sodium 09:58: Hospital Capsule 00 AM [DOK] EST Acetaminoph Acetam 02/16/ TABLET 975 ORAL complet [place] en 325 MG inophe 2019 mg ed [place] Oral Tablet n 09:58: Hospit al 00 AM EST Diazepam 5 Diazep 02/16/ TABLET 5 mg ORAL complet [place] MG Oral am 2018 ed [place] Tablet 09:58: Hospital 00 AM EST FLUTICASONE 01/27/ SPRAY 1 complet FLUTICA SONE MEDGEN (St NASAL:82523 2019 ed NASAL 12:00: Medical, 00 AM PC) EST POLYETHYLEN GOLYTE 12/22/ POWDER 30 complet GOLY TELY MEDGEN (St E GLYCOL LY:966 2018 FOR ed s [id number] [phone] 12:00: RECONSTI Medica l, MG/ML / 00 AM TUTION PC) Potassium EDT Chloride 0.01 MEQ/ML / Sodium Bicarbonate 0.02 MEQ/ML / Sodium Chloride 0.025 MEQ/ML / sodium sulfate 0.04 MEQ/ML Oral Solution [Golytely] GOLYTELY:96 6916 POLYETHYLEN GOLYTE 12/22/ POWDER 30 complet GOLY TELY MEDGEN (St E GLYCOL LY:966 2019 FOR ed Radhas [phone] 12:00: RECONSTI Medica l, MG/ML / 00 AM TUTION PC) Potassium EDT Chloride 0.01 MEQ/ML / Sodium Bicarbonate 0.02 MEQ/ML / Sodium Chloride 0.025 MEQ/ML / sodium sulfate 0.04 MEQ/ML Oral Solution [Golytely] GOLYTELY:96 6916 Bisacodyl 5 DULCOL 12/22/ DELAYED 6 complet DUL COLAX MEDGEN (St MG Delayed AX 2019 RELEASE ed LAXATIVE Lauren hn's Release LAXATI 12:00: TABLET Medica l, Oral Tablet VE:209 00 AM PC) [Dulcolax] 613 EDT DULCOLAX LAXATIVE:20 9613 Famotidine DUEXIS 10/06/ complet DUEXIS MEDGEN (St 26.6 MG / :38493 2018 ed [facility] Ibuprofen 70 12:00: Medical, 800 MG Oral 00 AM PC) Tablet EDT [Duexis] DUEXIS:1100 070 POLYETHYLEN 10/06/ POWDER 1 complet POLYET HYLENE MEDGEN (St E GLYCOL 2019 FOR ed GLYCOL 3350 [place] ford [id number] 12:00: RECONSTI Me dical, 00 AM TUTION PC) EDT Hydrocortis PROCTO 10/06/ CREAM 1 complet PROCT OZONE MEDGEN (St one 25 ZONE 2019 WITH ed HC [facility] MG/ML HC:144 12:00: APPLICAT Medica l, Topical 0936 00 AM OR PC) Cream EDT [Proctozone HC] PROCTOZONE HC:[id number] gabapentin GABAPE 08/26/ TABLET 30 complet GABAP ENTIN MEDGEN (St GABAPENTIN: NTIN:2 2019 ed Odalys [id number] 12:00: Medical, 00 AM PC) EDT NITROFURANT Macrob 08/21/ 1.0 active Macrobi d 100 eCW3 OIN, id 100 2019 {caps mg (Liu MACROCRYSTA mg 12:00: ule_w [place] LS 25 MG / 00 AM ith_f [facility] Nitrofurant EDT ood} Care) oin, Monohydrate 75 MG Oral Capsule [Macrobid] Macrobid 100 mg Fluconazole Flucon 1.0 active Flucona zole eCW3 150 MG Oral azole 2018 {tabl 150 MG (Hud son Tablet 150 MG 12:00: et} [place] 00 AM Health EDT Care) Metronidazo Flagyl .0 suspend Flagyl 500 eCW3 le 500 MG 500 MG 2017 {tabl ed MG (Liu Oral Tablet 12:00: et} [place] [Flagyl] 00 AM Health Flagyl 500 EDT Care) MG Fluconazole Flucon .0 suspend Flucon azole eCW3 150 MG Oral azole 2018 {tabl ed 150 MG (Hud son Tablet 150 MG 12:00: et} [place] 00 AM Health EDT Care) Fluconazole Flucon 1.0 suspend Flucon azole eCW3 150 MG Oral azole 2018 {tabl ed 150 MG (Hud son Tablet 150 MG 12:00: et} [place] 00 AM Health EDT Care) Paragard UNK 06/19/ active Paragard eCW 3 Intrauterin 2017 Intrauterine (Liu e Copper 12:00: Elbert 00 AM Health EDT Care) Meloxicam UNK 05/02/ suspend Meloxicam eCW3 2017 ed (Liu 12:00: [place] 00 AM Health EST Care) Gabapentin UNK 05/02/ active Gabapentin eCW3 (Once-Daily 2017 (Once-Daily) (Liu ) 12:00: [place] 00 AM Health EST Care) MULTIVITAMI UNK suspend MULTIVITAM IN eCW3 N ADULT ed ADULT ([facility]) Vi-Cert UNK suspend Vi-Cert C500 e CW3 C500 ed ([facility]) 21 DAY NuvaRi suspend NuvaRing eCW3 Ethinyl ng ed 0.12-0.015 ([facility] n Estradiol 0.12-0 MG/24HR [place] 0.701393 .015 Health MG/HR / MG/24H Care) Etonogestre R l 0.005 MG/HR Vaginal Ring [NuvaRing] NuvaRing 0.12-0.015 MG/24HR Iron UNK suspend Iron eCW3 ed ([facility]) VITAMIN D UNK suspend VITAMIN D eC W3 (ERGOCALCIF ed (ERGOCALCIFE (Liu MYRON) [facility]) Insurance Providers Payer name Policy type Policy ID Covered Covered republican's Policy P carissa / Coverage republican ID relationship to [place] Inf ormation type medellin [facility] MEDICAID [id number] SP [id number] [facility] [id number] 1 [id number] PLANS [facility] Medicaid [id number] 1 [id number] And Child [employer] Plus MEDICAID [id number] PT [id number] MEDICAID [id number] PT [id number] JZANUS SELF PAY PT INSURANCE [facility] [id number] PT [id number] [facility] [id number] PT [id number] [facility] MEDICAID [id number] SP [id number] [facility] MEDICAID [id number] SP [id number] [facility] Problems, Conditions, and Diagnoses Code Display Name Description Problem Type Effective Data Dates Source(s) Z00.01 Encounter for ENCOUNTER FOR Problem 10/20/2019 MEDGEN ( St general adult GENERAL ADULT 12:00:00 AM [facility] medical examination MEDICAL EXAMINATION T Medical, ) with abnormal WITH ABNORMAL findings FINDINGS Z01.810 Encounter for ENCOUNTER FOR Problem 01/27/2019 MEDGEN ( St preprocedural PREPROCEDURAL 12:00:00 AM [facility] cardiovascular CARDIOVASCULAR EST Medica , ) examination EXAMINATION K62.5 Hemorrhage of anus HEMORRHAGE OF ANUS Problem 9 MEDGEN (St and rectum AND RECTUM 12:00:[facility] K59.09 Other constipation OTHER CONSTIPATION Problem 9 MEDGEN (St 12:00:00 AM [facility], ) B96.81 Helicobacter pylori HELICOBACTER PYLORI Problem 019 MEDGEN (St [H. pylori] as the [H. PYLORI] THE 12:00:00 AM [facility] cause of diseases CAUSE OF DISEASES EDT Medical, ) classified elsewhere CLASSIFIED ELSEWHERE K59.00 Constipation, CONSTIPATION, Problem 10/06/2018 MEDGEN ( St unspecified UNSPECIFIED 12:00:00 AM [facility], ) Z80.0 Family history of FAMILY HISTORY OF Problem 08/26/2018 MEDGEN (St malignant neoplasm MALIGNANT NEOPLASM 12:00:00 AM [facility] digestive organs OF DIGESTIVE ORGANS [facility], ) K64.9 Unspecified UNSPECIFIED Problem 08/26/2018 MEDGEN (St hemorrhoids HEMORRHOIDS 12:00:00 AM [facility], ) E66.9 Obesity, unspecified OBESITY, Problem 08/26/2018 MEDG EN (St UNSPECIFIED 12:00:00 AM [facility], ) M54.10 Radiculopathy, site RADICULOPATHY, SITE Problem 019 MEDGEN (St unspecified UNSPECIFIED 12:00:00 AM [facility], ) Z30.431 IUD check up IUD check up Problem 07/17/2016 eCW3 ([facility] 12:[facility]:00 AM [facility] EDT [facility]) Z98.890 S/P cone biopsy of S/P cone biopsy of Problem 6 eCW3 (Liu cervix cervix 12:00:00 AM [facility] EDT [facility]) Z09 Follow up Follow up Problem 01/24/2016 eCW3 ([facility] 12:00:[facility] Z09 Postop check Postop check Problem 01/10/2016 eCW3 ([facility] 12:00:00 AM [facility] EDT Care) 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/2015 eCW3 (Liu squamous squamous 12:00:00 AM [facility] intraepithelial intraepithelial EDT Care ) lesion) on Pap smear lesion) on Pap of cervix smear of cervix 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 Cervical high risk Problem 12/06/2015 e CW3 (Liu virus human 12:00:00 AM [facility] deoxyribonucleic papillomavirus EDT Care ) acid test positive, (HPV) DNA test high risk on vaginal positive specimen 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 of Problem 6 eCW3 (Liu undet signfc cyto undet signfc cyto 12:00:00 AM [facility] smr crvx (ASC-US) smr crvx (ASC-US) EDT Care) V24.2 visit Problem 05/22/2012 eCW3 (C[facility] solorzano examination and care 12:00:00 AM [facility] Health of mother EST Care) D22.9 Melanocytic nevi, Nevus Diagnosis 09/15/2019 NEXTGEN unspecified 10:50:00 AM ([facility] EDT [facility]) L91.8 Other hypertrophic Skin tag Diagnosis 09/15/2019 NEXTGE N disorders of the 10:50:00 AM ([facility] unt skin EDT [facility]) R20.8 Other disturbances Other disturbances Diagnosis 0 NEXTGEN of skin sensation of skin sensation 10:50:00 [facility] Z68.39 Body mass index Z68.39 Diagnosis 06/25/2019 [place] (BMI) 39.0-39.9, 09:49:00 PM Hospita l adult EDT E66.01 Morbid (severe) E66.01 Diagnosis 06/25/2019 [place] obesity due to 09:49:00 PM Hospital excess calories EDT A08.39 Other viral A08.39 Diagnosis 06/25/2019 [place] enteritis 09:49:00 PM Hospital EDT J15.9 Unspecified J15.9 Diagnosis 06/25/2019 [place] bacterial pneumonia 09:49:00 PM Hosp ital EDT Z98.1 Arthrodesis status Z98.1 Diagnosis 06/25/2019 [place] 09:49:00 PM Hospital EDT J12.89 Other viral J12.89 Diagnosis 06/25/2019 [place] pneumonia 09:49:00 PM Hospital EDT U07.1 U07.1 U07.1 Diagnosis 06/25/2019 [place] 09:49:00 PM Hospital EDT A41.89 Other specified A41.89 Diagnosis 06/25/2019 [place] sepsis 09:49:00 PM Hospital EDT D62 Acute D62 Diagnosis 02/12/2019 [place] posthemorrhagic 05:38:00 AM Hospital anemia EST D72.829 Elevated white blood D72.829 Diagnosis 02/12/2019 [place] cell count, 05:38:00 AM Hospital unspecified EST Z23 Encounter for Z23 Diagnosis 02/12/2019 [place] immunization 05:38:00 AM Hospital EST M54.17 Radiculopathy, M54.17 Diagnosis 02/12/2019 [place] lumbosacral region 05:38:00 AM Hospi shabnam EST M43.17 Spondylolisthesis, M43.17 Diagnosis 02/12/2019 [place] lumbosacral region 05:38:00 AM Hospi [facility] EST M25.78 Osteophyte, M25.78 Diagnosis 01/03/2019 [place] vertebrae 09:53:00 AM Hospital EDT 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 Diagnosis 01/03/2019 [place] myelopathy or 09:53:00 AM Hospital radiculopathy, EDT cervicothoracic region M43.12 Spondylolisthesis, M43.12 Diagnosis 01/03/2019 [place] cervical region 09:53:00 AM Hospital EDT M50.21 Other cervical disc M50.21 Diagnosis 01/03/2019 [place] displacement, high 09:53:00 AM Hosp ital cervical region EDT M51.26 Other intervertebral M51.26 Diagnosis 01/03/2019 [place] disc displacement, 09:53:00 AM Hospi shabnam lumbar region EDT M43.16 Spondylolisthesis, M43.16 Diagnosis 01/03/2019 [place] lumbar region 09:53:00 AM Hospital EDT M47.816 Spondylosis without M47.816 Diagnosis 01/03/2019 [place] myelopathy or 09:53:00 AM Hospital radiculopathy, EDT lumbar region M48.07 Spinal stenosis, M48.07 Diagnosis 01/03/2019 [place] lumbosacral region 09:53:00 AM Hospi shab[facility] EDT M48.061 Spinal stenosis, M48.061 Diagnosis 01/03/2019 [place] lumbar region 09:53:00 AM Hospital without neurogenic EDT claudication Z01.818 Encounter for other Z01.818 Diagnosis 01/03/2019 [place] preprocedural 09:53:00 AM Hospital examination EDT M51.24 Other intervertebral M51.24 Diagnosis 01/03/2019 [place] disc displacement, 09:53:00 AM Hospi shabnam thoracic region EDT M99.13 Subluxation complex M99.13 Diagnosis 12/26/2018 [place] (vertebral) of 09:12:00 AM Hospital lumbar region EDT M47.817 Spondylosis without M47.817 Diagnosis 12/26/2018 [place] myelopathy or 09:12:00 AM Hospital radiculopathy, EDT lumbosacral region Surgeries/Procedures Procedure Description Date Indications Data Source(s) Documentation of current 10/20/2019 MED GEN (St medications (procedure) 12:00:00 AM [facility], EDT PC) Documentation of current 10/20/2019 MED GEN (St medications (procedure) 12:00:00 AM [facility], EDT ) Documentation of current 10/20/2019 MED GEN (St medications (procedure) 12:00:00 AM [facility], EDT ) Documentation of current 10/20/2019 MED GEN (St medications (procedure) 12:00:00 AM [facility], EDT ) Documentation of current 10/20/2019 MED GEN (St medications (procedure) 12:00:00 AM [facility], T ) COLLECTION VENOUS BLOOD 10/20/2019 MEDG EN (St VENIPUNCTURE 12:00:00 AM [facility], T ) REMOVAL OF SKIN TAGS <W/15 REMOVAL OF SKIN 09/15/2019 NEXTGEN TAGS <W/15 12:00:00 AM ([facility]) OFFICE/OUTPATIENT VISIT EST OFFICE/OUTPATIENT 09/15/2019 NEXTGEN VISIT EST 12:00:00 AM ([facility]) DESTRUCT B9 LESION 1-14 DESTRUCT B9 LESION 09/15/2019 NEXTGEN 1-14 12:00:00 AM ([facility]) [place] chest X-ray 06/28/2019 [place] (procedure) 12:00:00 AM Hospital EDT Plain chest X-ray 06/25/2019 [place] (procedure) 12:00:00 AM Hospital EDT Oxygen therapy (procedure) 06/25/2019 [place] stephania [place] 12:00:00 AM Hospital EDT Electrocardiographic 06/25/2019 [place] chastityyvette procedure (procedure) 12:00:00 AM Hospit al EDT Diagnostic radiography of 02/15/2019 ite [place] lumbar spine, combined 12:00:00 AM Hospi shabnam anteroposterior and lateral EST (procedure) Physical therapy procedure 02/14/2019 [place]ia [place] (regime/therapy) 12:00:00 AM Hospital EST Physical therapy procedure 02/12/2019 [place] (regime/therapy) 12:00:00 AM Hospital EST Physical therapy procedure 02/12/2019 [place] (regime/therapy) 12:00:00 AM Hospital EST Physical therapy procedure 02/12/2019 [place] (regime/therapy) 12:00:00 AM Hospital EST Physical therapy procedure 02/12/2019 [place] (regime/therapy) 12:00:00 AM Hospital EST Diagnostic radiography of 02/12/2019 ite [place] lumbar spine, combined 12:00:00 AM Hospi shabnam anteroposterior and lateral EST (procedure) Fluoroscopy (procedure) 02/12/2019 [place] 12:00:00 AM Hospital EST Oxygen therapy (procedure) 02/12/2019 [place]ia [place] 12:00:00 AM Hospital EST Documentation of current 01/27/2019 MED GEN (St medications (procedure) 12:00:00 AM [facility], EST PC) Documentation of current 01/27/2019 MED GEN (St medications (procedure) 12:00:00 AM [facility], EST PC) Documentation of current 01/27/2019 MED GEN (St medications (procedure) 12:00:00 AM [facility], EST PC) Documentation of current 01/27/2019 MED GEN (St medications (procedure) 12:00:00 AM [facility], EST PC) OFFICE OUTPATIENT VISIT 25 01/27/2019 Chani MORALES (St MINUTES 12:00:00 AM [facility], EST PC) ECG ROUTINE ECG W/LEAST 12 01/27/2019 Chani MORALES (St [facility] W/I&R 12:00:00 AM [facility], EST PC) COLLECTION VENOUS BLOOD 01/27/2019 MEDG EN (St VENIPUNCTURE 12:00:00 AM [facility], EST PC) OFFICE OUTPATIENT VISIT 15 12/22/2018 Chani MORALES (St MINUTES 12:00:00 AM Od[facility] Rascon EDT ) Documentation of current 10/06/2018 MED GEN (St medications [facility]procedure[facility]ation of current 10/06/2018 MED GEN (St medications (procedure) 12:00:[facility] Documentation of current 10/06/2018 MED GEN (St medications (procedure) 12:00:00 [facility] ) Documentation of current 10/06/2018 MED GEN (St medications (procedure) 12:00:00 [facility] ) Documentation of current 10/06/2018 MED GEN (St medications (procedure) 12:00:00 [facility] BLOOD OCCULT PEROXIDASE ACTV 10/06/2018 MEDGEN ([facility] QUAL OTHER [facility] of current 08/26/2018 MED GEN (St medications (procedure) 12:00:00 [facility] ) Documentation of current 08/26/2018 MED GEN (St medications (procedure) 12:00:00 [facility] ECG ROUTINE ECG W/LEAST 12 08/26/2018 M CARMEN (St [facility] W/I&R 12:00:00 AM [facility]) COLLECTION VENOUS BLOOD 08/26/2018 MEDG EN (St VENIPUNCTURE 12:00:00 AM [facility]) Results ID Date Data Source [id number] 10/02/2019 12:00:00 AM EDT [facility] Name Value Range Interpretation Code Description Data Lindsey rce(s) Supporting Document(s ) 2019-nCoV [facility] RNA XXX CARLITA+probe- Imp This lab was ordered [facility] and re ported by [employer] ID Date Data Source [id number] 08/19/2019 01:52:00 PM EDT [facility] Name Value Range Interpretation Description Data Sup porting Code Source(s) Document(s ) 2019 Novel [facility] Coronavirus RNA Interpretation Unspecified Specimen Qualitative CARLITA Probe Detection This lab was ordered by [facility] and reported by [facility]. ID Date Data Source [id number] 06/29/2019 07:48[facility] Name Value Range Interpretation Description Data Sup porting Code Source(s) Document(s ) Aspartate 28 U/L [place] aminotransferase [place] [Enzymatic Hospital activity/volume] in Serum or Plasma ID Date Data Source [id number] 06/29/2019 07:48:00 AM EDT [facility] Name Value Range Interpretation Description Data Sup porting Code Source(s) Document(s ) Alanine 42 U/L [place] aminotransferase [place] [Enzymatic Hospital activity/volume] in Serum or Plasma ID Date Data Source [id number] 06/29/2019 07:48:00 AM [facility] Value Range Interpretation Description Data Sup porting Code Source(s) Document(s ) Alkaline 60 U/L [place] [facility] [Enzymatic activity/volume ] in Serum or Plasma ID Date Data Source [id number] 06/29/2019 07:48:00 AM [facility] Name Value Range Interpretation Description Data Sup porting Code Source(s) Document(s ) Bilirubin.t 0.2 mg/dL [facility] [Mass/volum e] in Serum or Plasma ID Date Data Source [id number] 06/29/2019 07:48:00 AM [facility] Center Value Range Interpretation Code Description Data Lindsey rce(s) Supporting Document(s ) Albumin/Glob 1.5 [place] ulin [Mass [facility] Ratio] in Serum or Plasma ID Date Data Source [id number] 06/29/2019 07:48:00 AM [facility] Value Range Interpretation Description Data Sup porting Code Source(s) Document(s ) Albumin 4.0 g/dL [place] [Mass[facility]volume Hospital ] in Serum or Plasma ID Date Data Source [id number] 06/29[facility] Value [facility] Interpretation Description Data Sup porting Code Source(s) Document(s ) Protein 6.6 g/dL [place] [[facility]volume [facility] ] in Serum or Plasma ID Date Data Source [id number] 06/29/2019 07:48:00 AM T [facility] Name Value Range Interpretation Description Data Sup porting Code Source(s) Document(s ) Calcium 9.3 mg/dL [place] [Mass[facility] ] in Serum or Plasma ID Date Data Source [id number] 06/29/2019 07:48:00 AM [facility] UNITS ARE IN ml/min/1.73m2.IF PATIENT IS -BRUNEIAN, MULTIPLY REPORTED RESULT BY 1.21. Name Value Range Interpretation Description Data Sup porting Code Source(s) Document(s ) Glomerular > 60 [place] filtration mL/min Hospital rate/1.73 sq M.predicted [Volume Rate/Area] in Serum or Plasma by Creatinine-bas ed formula (MDRD) ID Date Data Source [id number] 06/29/2019 07:48:00 AM [facility] Value Range Interpretation Code Description Data Lindsey rce(s) Supporting Document(s ) Urea 15.0 [place] nitrogen/Cre Hospital atinine [Mass Ratio] in Serum or Plasma ID Date Data Source [id number] 06/29/2019 07:48:00 AM [facility] Name Value Range Interpretation Description Data Sup porting Code Source(s) Document(s ) Creatinine 0.6 mg/dL [place] [Mass/volume] Hospital in Serum or Plasma ID Date Data Source [id number] 06/29/2019 07:48:00 AM [facility] Name Value Range Interpretation Description Data Sup porting Code Source(s) Document(s ) Urea nitrogen 9 mg/dL [place] [Mass/volume] Hospital in Serum or Plasma ID Date Data Source [id number] 06/29/2019 07:48:00 AM EDT [facility] Name Value Range Interpretation Code Description Data Lindsey rce(s) Supporting Document(s ) Anion gap in 13 [place] Serum or Hospital Plasma ID Date Data Source [id number] 06/29/2019 07:48:00 AM EDT [facility] Name Value Range Interpretation Description Data Sup porting Code Source(s) Document(s ) Carbon 24 mmol/L [place] dioxide, Hospital total [Moles/volu me] in Serum or Plasma ID Date Data Source [id number] 06/29/2019 07:48:00 AM EDT [facility] Value Range Interpretation Description Data Sup porting Code Source(s) Document(s ) Chloride 107 [place] [Moles/volum mmol/L Hospital e] in Serum or Plasma ID Date Data Source [id number] 06/29/2019 07:48:00 AM EDT [facility] Value Range Interpretation Description Data Sup porting Code Source(s) Document(s ) Potassium 4.7 [place] [Moles/volume mmol/L Hospital ] in Serum or Plasma ID Date Data Source [id number] 06/29/2019 07:48:00 AM EDT [facility] Value Range Interpretation Description Data Sup porting Code Source(s) Document(s ) Sodium 139 mmol/L [place] [Moles/volu Hospital me] in Serum or Plasma ID Date Data Source [id number] 06/29/2019 07:48:00 AM EDT [facility] Name Value Range Interpretation Description Data Sup porting Code Source(s) Document(s ) Glucose 93 mg/dL [place] [Mass/volume Hospital ] in Serum or Plasma ID Date Data Source [id number] 06/[facility] Interpret[facility] Description Data Sup porting Code Source(s) Document(s ) Platelet mean 9.4 fL [place] volume Hospital [Entitic volume] in Blood by Automated count ID Date Data Source [id number] 06/29/2019 07:48:00 AM EDT [facility] Value Range Interpretation Description Data Sup porting Code Source(s) Document(s ) Platelets 422 [place] [#/volume] in 10*3/uL Hospital Blood by Automated count ID Date Data Source [id number] 06/29/2019 07:48[facility] Interpretation Description Data Sup porting Code Source(s) Document(s ) Erythrocyte 14.9 % [place] distribution Hospital width [Ratio] by Automated count ID Date Data Source [id number] 06/29/2019 07:48:00 AM [facility] Value Range Interpretation Description Data Sup porting Code Source(s) Document(s ) Erythrocyte mean 32.4 [place] corpuscular g/dL Hospital hemoglobin concentration [Mass/volume] by Automated count ID Date Data Source [id number] 06/29/2019 07:48:00 AM [facility] Value Range Interpretation Description Data Sup porting Code Source(s) Document(s ) Erythrocyte 26.8 pg [facility] Center corpuscular hemoglobin [Entitic mass] by Automated count ID Date Data Source [id number] 06/29/2019 07:48:00 AM [facility] Value Range Interpretation Description Data Sup porting Code Source(s) Document(s ) Erythrocyte 82.8 fL [place] mean Hospital corpuscular volume [Entitic volume] by Automated count ID Date Data Source [id number] 06/29/2019 07:48:00 AM EDT [facility] Name Value Range Interpretation Description Data Sup porting Code Source(s) Document(s ) Hematocrit 38.9 % [place] [Volume Hospital Fraction] of Blood by Automated count ID Date Data Source [id number] 06/29/2019 07:48:00 AM EDT [facility] Name Value Range Interpretation Description Data Sup porting Code Source(s) Document(s ) Hemoglobin 12.6 g/dL [place] [Mass/volume] Hospital in Blood ID Date Data Source [id number] 06/29/2019 07:48:00 AM EDT [facility] Name Value Range Interpretation Description Data Sup porting Code Source(s) Document(s ) Erythrocytes 4.70 [place] [#/volume] in 10*6/uL Hospital Blood by Automated count ID Date Data Source [id number] 06/29/2019 07:48:00 AM EDT [facility] Name Value Range Interpretation Description Data Sup porting Code Source(s) Document(s ) Leukocytes 5.1 [place] [#/volume] in 10*3/uL Hospital Blood by Automated count ID Date Data Source [id number] 06/28/2019 08:24:00 AM EDT [facility] Name Value Range Interpretation Description Data Sup porting Code Source(s) Document(s ) C reactive 78.0 mg/L [place] protein Hospital [Mass/volume ] in Serum or Plasma ID Date Data Source [id number] 06/28/2019 08:24:00 AM EDT [facility] Name Value Range Interpretation Description Data Sup porting Code Source(s) Document(s ) Ferritin 141.0 [place] [Mass/volume ng/mL Hospital ] in Serum or Plasma ID Date Data Source [id number] 06/28/2019 08:24:00 AM EDT [facility] Name Value Range Interpretation Code Description Data Supporting Source(s) Document(s ) Creatine 44 U/L [place] kinase Hospital [Enzymatic activity/volu me] in Serum or Plasma ID Date Data Source [id number] 06/28/2019 08:24:00 AM EDT [facility] Name Value Range Interpretation Description Data Sup porting Code Source(s) Document(s ) Lactate 219 U/L [place] dehydrogenase Hospital [Enzymatic activity/volume] in Serum or Plasma ID Date Data Source [id number] 06/28/2019 08:24:00 AM EDT [facility] Value Range Interpretation Code Description Data Supporting Source(s) Document(s ) NUCLEATED RBCS 0.0 % [place] (AUTO Hospital DIFF%)DIS ID Date Data Source [id number] 06/28/2019 08:24:00 AM EDT [facility] Name Value Range Interpretation Description Data Sup porting Code Source(s) Document(s ) Differential MANUAL [place] cell count Hospital method - Blood ID Date Data Source [id number] 06/28/2019 08:24:00 AM EDT [facility] Value Range Interpretation Code Description Data Lindsey rce(s) Supporting Document(s ) Cells 100 [place] Counted Hospital Total [#] in Blood ID Date Data Source [id number] 06/28/2019 08:24:00 AM EDT [facility] Value Range Interpretation Code Description Data Supporting Source(s) Document(s ) PLATELET NORMAL [place] COMMENT Hospital ID Date Data Source [id number] 06/28/2019 08:24:00 AM EDT [facility] Name Value Range Interpretation Code Description Data Lindsey rce(s) Supporting Document(s ) RBC COMMENT NORMAL [place] Hospital ID Date Data Source [id number] 06/28/2019 08:24:00 AM EDT [facility] Value Range Interpretation Description Data Sup porting Code Source(s) Document(s ) Monocytes 0.33 [place] [#/volume] in 10*3/uL Hospital Blood by Manual count ID Date Data Source [id number] 06/28/2019 08:24:00 AM EDT [facility] Value Range Interpretation Description Data Sup porting Code Source(s) Document(s ) Lymphocytes 1.56 [place] [#/volume] in 10*3/uL Hospital Blood by Manual count ID Date Data Source [id number] 06/28/2019 08:24:00 AM EDT [facility] Value Range Interpretation Description Data Sup porting Code Source(s) Document(s ) Neutrophils 2.21 [place] [#/volume] in 10*3/uL Hospital Blood by Manual count ID Date Data Source [id number] 06/28/2019 08:24:00 AM EDT [facility] Value Range Interpretation Description Data Sup porting Code Source(s) Document(s ) Monocytes/100 8 % [place] leukocytes in Hospital Blood by Manual count ID Date Data Source [id number] 06/28/2019 08:24:00 AM EDT [facility] Value Range Interpretation Description Data Sup porting Code Source(s) Document(s ) Plasma 1 % [place] cells/100 Hospital leukocytes in Blood ID Date Data Source [id number] 06/28/2019 08:24:00 AM EDT [facility] Value Range Interpretation Description Data Sup porting Code Source(s) Document(s ) Variant 1 % [place] lymphocytes/100 Hospital leukocytes in Blood by Manual count ID Date Data Source [id number] 06/28/2019 08:24:00 AM EDT [facility] Value Range Interpretation Description Data Sup porting Code Source(s) Document(s ) Lymphocytes/100 36 % [place] leukocytes in Hospital Blood by Manual count ID Date Data Source [id number] 06/28/2019 08:24:00 AM EDT [facility] Value Range Interpretation Description Data Sup porting Code Source(s) Document(s ) Band form 4 % [place] neutrophils/100 Hospital leukocytes in Blood ID Date Data Source [id number] 06/28/2019 08:24:00 AM EDT [facility] Value Range Interpretation Description Data Sup porting Code Source(s) Document(s ) Neutrophils/100 50 % [place] leukocytes in Hospital Blood by Manual count ID Date Data Source [id number] 06/27/2019 08:10:00 AM EDT [facility] Value Range Interpretation Description Data Sup porting Code Source(s) Document(s ) Immature 0.03 [place] granulocytes 10*3/uL Hospital [#/volume] in Blood by Automated count ID Date Data Source [id number] 06/27/2019 08:10:00 AM EDT [facility] Value Range Interpretation Description Data Sup porting Code Source(s) Document(s ) Basophils 0.02 [place] [#/volume] in 10*3/uL Hospital Blood by Automated count ID Date Data Source [id number] 06/27/2019 08:10:00 AM EDT [facility] Value Range Interpretation Description Data Sup porting Code Source(s) Document(s ) Eosinophils 0.02 [place] [#/volume] in 10*3/uL Hospital Blood by Automated count ID Date Data Source [id number] 06/27/2019 08:10:00 AM EDT [facility] Value Range Interpretation Description Data Sup porting Code Source(s) Document(s ) Monocytes 0.56 [place] [#/volume] in 10*3/uL Hospital Blood by Automated count ID Date Data Source [id number] 06/27/2019 08:10:00 AM EDT [facility] Value Range Interpretation Description Data Sup porting Code Source(s) Document(s ) Lymphocytes 2.03 [place] [#/volume] in 10*3/uL [facility] Blood by Automated count ID Date Data Source [id number] 06/27/2019 08:10:00 AM EDT [facility] Value Range Interpretation Description Data Sup porting Code Source(s) Document(s ) Neutrophils 3.68 [place] [#/volume] in 10*3/uL [facility] Blood by Automated count ID Date Data Source [id number] 06/27/2019 08:10:00 AM EDT [facility] Value Range Interpretation Description Data Sup porting Code Source(s) Document(s ) Nucleated 0.0 % [place] erythrocytes/10 Hospital 0 leukocytes [Ratio] in Blood by Automated count ID Date Data Source [id number] 06/27/2019 08:10:00 AM EDT [facility] Value Range Interpretation Description Data Sup porting Code Source(s) Document(s ) Immature 0.5 % [place] granulocytes/10 Hospital 0 leukocytes in Blood by Automated count ID Date Data Source [id number] 06/27/2019 08:10:00 AM EDT [facility] Value Range Interpretation Description Data Sup porting Code Source(s) Document(s ) Basophils/100 0.3 % [place] leukocytes in Hospital Blood by Automated count ID Date Data Source [id number] 06/27/2019 08:10:00 AM EDT [facility] Name Value Range Interpretation Description Data Sup porting Code Source(s) Document(s ) Eosinophils/100 0.3 % [place] leukocytes in Hospital Blood by Automated count ID Date Data Source [id number] 06/27/2019 08:10:00 AM EDT [facility] Value Range Interpretation Description Data Sup porting Code Source(s) Document(s ) Monocytes/100 8.8 % [place] leukocytes in Hospital Blood by Automated count ID Date Data Source [id number] 06/27/2019 08:10:00 AM EDT [facility] Value Range Interpretation Description Data Sup porting Code Source(s) Document(s ) Lymphocytes/10 32.0 % [place] 0 leukocytes Hospital in Blood by Automated count ID Date Data Source [id number] 06/27/2019 08:10:00 AM EDT [facility] Value Range Interpretation Description Data Sup porting Code Source(s) Document(s ) Neutrophils/10 58.1 % [place] 0 leukocytes Hospital in Blood by Automated count ID Date Data Source [id number] 06/26/2019 12:36:00 PM EDT [facility] Value Range Interpretation Description Data Sup porting Code Source(s) Document(s ) Leukocytes NEGATIVE [place] [#/area] in FOR WBCS Hospital Stool by Microscopy high power field ID Date Data Source [id number] 06/26/2019 [facility] Interpretation Description Data Sup porting Code Source(s) Document(s ) Phosphate 3.1 mg/dL [place] [Mass/volume] Hospital in Serum or Plasma ID Date Data Source [id number] 06/26/2019 07:41:00 AM EDT [facility] Value Range Interpretation Description Data Sup porting Code Source(s) Document(s ) Magnesium 1.7 mg/dL [place] [Mass/volume] Hospital in Serum or Plasma ID Date Data Source [id number] 06/26/2019 07:41:00 AM EDT [facility] A VALUE LESS THAN 500 NG/ML FEU IN PATIE NTS UNDER AGE 50, WHEN COMBINED WITH A CLINICAL ASSESSMENT OF LOW PRETEST PROBA BILITY, HAS BEEN SHOWN TO HAVE A HIGH NEGATIVE PREDICTIVE VALUE FOR DVT OR PE. USING AGE-ADJUSTED THRESHOLDS (AGE X 10) IN PATIENTS OLDER THAN 50 YEARS IS RECOMMEN DED FOR DETERMINING WHETHER IMAGING IS WARRANTED.D-DIMER IS NOT A SPECIFIC [facility] ER FOR DVT OR PE AND CAN BE ELEVATED IN THE ELDERLY WELL IN THE FOLLOWING COND ITIONS: , CANCER, INFECTION, DIC, TRAUMA AND INFLAMMATION. Name Value Range Interpretation Description Data Sup porting Code Source(s) Document(s ) Fibrin 622 ng/mL [place] [facility] [Mass/volume ] in Platelet poor plasma ID Date Data Source [id number] 06/25/2019 10:58:00 PM EDT [facility] Name Value Range Interpretation Description Data Sup porting Code Source(s) Document(s ) Lactate 1.7 [place] [Moles/volum mmol/L Hospital e] in Serum or Plasma ID Date Data Source [id number] 06/25/2019 10:58:00 PM EDT [facility] Name Value Range Interpretation Code Description Data Lindsey rce(s) Supporting Document(s ) Lipase 39 U/L [place] [Enzymatic Hospital activity/vo lume] in Serum or Plasma ID Date Data Source [id number] 06/25/2019 05:25:00 PM EDT [facility] Name Value Range Interpretation Description Data Sup porting Code Source(s) Document(s ) Bacteria No growth [place] identified in Hospital Blood by Culture ID Date Data Source [id number] 06/25/2019 05:25:00 PM EDT [facility] Name Value Range Interpretation Code Description Data Lindsey rce(s) Supporting Document(s ) URINE 0-5 [facility] CASTS ID Date Data Source [id number] 06/25/2019 05:25:00 PM EDT [facility] Name Value Range Interpretation Description Data Sup porting Code Source(s) Document(s ) URINE 1+ [place] EPITHELIAL Hospital CELLS ID Date Data Source [id number] 06/25/2019 05:25:00 PM EDT [facility] Name Value Range Interpretation Description Data Sup porting Code Source(s) Document(s ) Erythrocytes 20-40 [place] [#/area] in /[HPF] Hospital Urine sediment by Automated count ID Date Data Source [id number] 06/25/2019 05:25:00 PM EDT [facility] Name Value Range Interpretation Description Data Sup porting Code Source(s) Document(s ) Leukocytes 5-10 [place] [#/area] in /[HPF] Hospital Urine sediment by Automated count ID Date Data Source [id number] 06/25/2019 05:25:00 PM EDT [facility] Value Range Interpretation Code Description Data Supporting Source(s) Document(s ) Leukocyte 1+ [place] esterase Hospital [Presence] in Urine by Test strip ID Date Data Source [id number] 06/25/2019 05:25:00 PM EDT [facility] Name Value Range Interpretation Description Data Sup porting Code Source(s) Document(s ) URINE NEGATIVE [facility] Hospital ID Date Data Source [id number] 06/25/2019 05:25:00 PM EDT [facility] Name Value Range Interpretation Description Data Sup porting Code Source(s) Document(s ) Erythrocytes 2+ [place] [#/volume] in Hospital Urine by Test strip ID Date Data Source [id number] 06/25/2019 05:25:00 PM EDT [place] [facility] Name Value Range Interpretation Code Description Data Lindsey rce(s) Supporting Document(s ) Bilirubin. NEGATIVE [place] total Hospital [Presence] in Urine by Test strip ID Date Data Source [id number] 06/25/2019 05:25:00 PM EDT [place] [facility] Name Value Range Interpretation Description Data Sup porting Code Source(s) Document(s ) Urobilinogen 0.2 [place] [Units/volume] mg/dL Hospital in Urine by Test strip ID Date Data Source [id number] 06/25/2019 05:25:00 PM EDT [facility] Name Value Range Interpretation Code Description Data Lindsey rce(s) Supporting Document(s ) Ketones TRACE [place] [Mass/volume Hospital ] in Urine by Test strip ID Date Data Source [id number] 06/25/2019 05:25:00 PM EDT [facility] Name Value Range Interpretation Description Data Sup porting Code Source(s) Document(s ) Glucose NEGATIVE [place] [Mass/volume Hospital ] in Urine by Test strip ID Date Data Source [id number] 06/25/2019 05:25:00 PM EDT [place] [facility] Name Value Range Interpretation Code Description Data Lindsey rce(s) Supporting Document(s ) Protein TRACE [place] [Presence] Hospital in Urine by Test strip ID Date Data Source [id number] 06/25/2019 05:25:00 PM EDT [facility] Name Value Range Interpretation Code Description Data Lindsey rce(s) Supporting Document(s ) pH of Urine 5.5 [place] by Test Hospital strip ID Date Data Source [id number] 06/25/2019 [facility] Value [facility] Interpretation Code Description Data Supporting Source(s) Document(s ) Specific 1.021 [place] gravity of Hospital Urine by Test strip ID Date Data Source [id number] 06/25/2019 [facility]:25[facility] Value Range Interpretation Description Data Sup porting Code Source(s) Document(s ) Clarity in Urine CLEAR [place] by Refractometry Hospital automated ID Date Data Source [id number] 06/25/2019 [facility] Interpretation Code Description Data Lindsey rce(s) Supporting Document(s ) Color of YELLOW [place] Urine Hospital ID Date Data Source [id number] 06/25/2019 05[facility]18:[facility] Value Range Interpretation Description Data Sup porting Code Source(s) Document(s ) Hepatitis C NON-REACT [place] virus Ab [facility] [Presence] in Serum ID Date Data Source [id number] 06/25/2019 05:18[facility] Value Range Interpretation Description Data Sup porting Code Source(s) Document(s ) Hepatitis B NON-REACT [place] virus core Ab [facility] [Presence] in Serum ID Date Data Source [id number] 06/25/2019 05:18:[facility] Value Range Interpretation Description Data Sup porting Code Source(s) Document(s ) Hepatitis A NON-REACT [place] virus IgM Ab [facility] [Presence] in Serum ID Date Data Source [id number] 06/25/2019 05:18:00 PM EDT [facility] Name Value Range Interpretation Description Data Sup porting Code Source(s) Document(s ) Hepatitis A REACTIVE [place] virus Ab Hospital [Presence] in Serum ID Date Data Source [id number] 06/25/2019 05:18:00 PM EDT [facility] Name Value Range Interpretation Description Data Sup porting Code Source(s) Document(s ) Hepatitis B REACTIVE [place] virus surface Hospital Ab [Presence] in Serum ID Date Data Source [id number] 06/25/2019 05:18:00 PM EDT [facility] Name Value Range Interpretation Description Data Sup porting Code Source(s) Document(s ) Hepatitis B NON-REACT [place] virus surface [facility] [Presence] in Serum ID Date Data Source [id number] 06/25/2019 05:18:00 PM EDT [facility] Name Value Range Interpretation Description Data Sup porting Code Source(s) Document(s ) HCG QUALITATIVE NEGATIVE [facility] ID Date Data Source [id number] 06/25/2019 05:18:00 PM EDT [facility] Name Value Range Interpretation Description Data Sup porting Code Source(s) Document(s ) Natriuretic 7.3 pg/mL [place] peptide B Hospital [Mass/volume] in Serum or Plasma ID Date Data Source [id number] 06/25[facility]2019 [facility] PERFORMED BY [employer] ULTRA SENSITIVE CENTAUR CHEMILUMINESCENCE METHOD. Name Value Range Interpretation Description Data Sup porting Code Source(s) Document(s ) Troponin < 0.01 [place] I.cardiac ng/mL Hospital [Mass/volume ] in Serum or Plasma ID Date Data Source [id number] 06/25/2019 05:18:00 PM EDT [facility] Name Value Range Interpretation Description Data Sup porting Code Source(s) Document(s ) Procalcitonin 0.3 [place] [Mass/volume] in ng/mL Hospital Serum or Plasma ID Date Data Source [id number] 06/25/2019 05:18:00 PM EDT [facility] Name Value Range Interpretation Description Data Sup porting Code Source(s) Document(s ) Bilirubin.d < 0.1 [place] irect mg/dL Hospital [Mass/volum e] in Serum or Plasma ID Date Data Source [id number] 06/25/2019 [facility]18[facility] THERAPEUTIC RANGES:UNFRACTIONATED HEPARI N THERAPY: 60-90 SECONDSARGATROBAN THERAPY: 49-99 SECONDS Name Value Range Interpretation Description Data Sup porting Code Source(s) Document(s ) aPTT in 32.1 s [place] Platelet poor [facility] plasma by Coagulation assay ID Date Data Source [id number] 06/25/2019 05:18:00 PM [facility] THERAPEUTIC RANGE FOR STANDARD ORALANTIC OAGULANT THERAPY: 2.0-3.0THERAPEUTIC RANGE FOR HIGH DOSE ORALANTICOAGULANT THERAPY (MECHANICAL HEARTVALVE REPLACEMENT): 2.5-3.5 Name Value Range Interpretation Description Data Sup porting Code Source(s) Document(s ) INR in Platelet 1.1 [place] poor plasma by Hospital Coagulation assay ID Date Data Source [id number] 06/25/2019 [facility]18[facility] Name Value Range Interpretation Description Data Sup porting Code Source(s) Document(s ) PT panel - 12.6 s [place] Platelet poor [facility] plasma by Coagulation assay ID Date Data Source [id number] 06/25/2019 05[facility]18:[facility] Name Value Range Interpretation Description Data Sup porting Code Source(s) Document(s ) Erythrocyte 105 mm/h [facility] rate by Westergren method ID Date Data Source [id number] 02/13/2019 07:13:00 AM EST [facility] Name Value Range Interpretation Description Data Sup porting Code Source(s) Document(s ) Aspartate 16 U/L [facility] aminotransferase [place] [Enzymatic Hospital activity/volume] in Serum or Plasma ID Date Data Source [id number] 02/13/2019 07:13:00 AM [facility] Name Value Range Interpretation Description Data Sup porting Code Source(s) Document(s ) Alanine 17 U/L [place] aminotransferase [place] [Enzymatic Hospital activity/volume] in Serum or Plasma ID Date Data Source [id number] 02/13/2019 07:13:00 AM [facility] Name Value Range Interpretation Description Data Sup porting Code Source(s) Document(s ) Alkaline 46 U/L [place] phosphatase Hospital [Enzymatic activity/volume ] in Serum or Plasma ID Date Data Source [id number] 02/13/2019 07:13:00 AM [facility] Name Value Range Interpretation Description Data Sup porting Code Source(s) Document(s ) Bilirubin.t 0.2 mg/dL [facility] [Mass/volum e] in Serum or Plasma ID Date Data Source [id number] 02/13/2019 07:13:00 AM [facility] Name Value Range Interpretation Code Description Data Lindsey rce(s) Supporting Document(s ) Albumin/Glob 2.0 [facility] [Mass Hospital Ratio] in Serum or Plasma ID Date Data Source [id number] 02/13/2019 07:13:00 AM [facility] Name Value Range Interpretation Description Data Sup porting Code Source(s) Document(s ) Albumin 3.4 g/dL [place] [Mass/volume Hospital ] in Serum or Plasma ID Date Data Source [id number] 02/13/2019 07:13:00 AM [facility] Name Value Range Interpretation Description Data Sup porting Code Source(s) Document(s ) Protein 5.1 g/dL [place] [Mass/volume Hospital ] in Serum or Plasma ID Date Data Source [id number] 02/13/2019 07:13:00 AM EST [facility] Name Value Range Interpretation Description Data Sup porting Code Source(s) Document(s ) Calcium 8.6 mg/dL [place] [Mass/volume Hospital ] in Serum or Plasma ID Date Data Source [id number] 02/13/2019 07:13:00 AM EST [facility] Name Value Range Interpretation Code Description Data Lindsey rce(s) Supporting Document(s ) Urea 14.0 [place] nitrogen/Cre Hospital atinine [Mass Ratio] in Serum or Plasma ID Date Data Source [id number] 02/13/2019 07:13:00 AM EST [facility] Name Value Range Interpretation Description Data Sup porting Code Source(s) Document(s ) Creatinine 0.5 mg/dL [place] [Mass/volume] Hospital in Serum or Plasma ID Date Data Source [id number] 02/13/2019 07:13:00 AM [facility] Name Value Range Interpretation Description Data Sup porting Code Source(s) Document(s ) Urea nitrogen 7 mg/dL [place] [Mass/volume] Hospital in Serum or Plasma ID Date Data Source [id number] 02/13/2019 07:13:00 AM [facility] Name Value Range Interpretation Code Description Data Lindsey rce(s) Supporting Document(s ) Anion gap in 11 [place] Serum or Hospital Plasma ID Date Data Source [id number] 02/13/2019 07:13:00 AM [facility] Name Value Range Interpretation Description Data Sup porting Code Source(s) Document(s ) Carbon 26 mmol/L [place] dioxide, Hospital total [Moles/volu me] in Serum or Plasma ID Date Data Source [id number] 02/13/2019 07:13:00 AM EST [facility] Name Value Range Interpretation Description Data Sup porting Code Source(s) Document(s ) Chloride 105 [place] [Moles/volum mmol/L Hospital e] in Serum or Plasma ID Date Data Source [id number] 02/13/2019 07:13:00 AM EST [facility] Name Value Range Interpretation Description Data Sup porting Code Source(s) Document(s ) Potassium 4.1 [place] [Moles/volume mmol/L Hospital ] in Serum or Plasma ID Date Data Source [id number] 02/13/2019 07:13:00 AM EST [facility] Name Value Range Interpretation Description Data Sup porting Code Source(s) Document(s ) Sodium 138 mmol/L [place] [Moles/volu Hospital me] in Serum or Plasma ID Date Data Source [id number] 02/13/2019 07:13:00 AM EST [facility] Name Value Range Interpretation Description Data Sup porting Code Source(s) Document(s ) Glucose 104 mg/dL [place] [Mass/volume Hospital ] in Serum or Plasma ID Date Data Source [id number] 02/13/2019 07:13:00 AM EST [facility] Name Value Range Interpretation Code Description Data Supporting Source(s) Document(s ) NUCLEATED RBCS 0.0 % [place] (AUTO Hospital DIFF%)DIS ID Date Data Source [id number] 02/13/2019 07:13:00 AM [facility] Name Value Range Interpretation Description Data Sup porting Code Source(s) Document(s ) Differential AUTOMATED [place] cell count Hospital method - Blood ID Date Data Source [id number] 02/13/2019 07:13:00 AM [facility] Name Value Range Interpretation Description Data Sup porting Code Source(s) Document(s ) Immature 0.07 [place] granulocytes 10*3/uL Hospital [#/volume] in Blood by Automated count ID Date Data Source [id number] 02/13/2019 07:13:00 AM EST [facility] Name Value Range Interpretation Description Data Sup porting Code Source(s) Document(s ) Basophils 0.01 [place] [#/volume] in 10*3/uL Hospital Blood by Automated count ID Date Data Source [id number] 02/13/2019 07:13:00 AM EST [facility] Name Value Range Interpretation Description Data Sup porting Code Source(s) Document(s ) Eosinophils 0.00 [place] [#/volume] in 10*3/uL Hospital Blood by Automated count ID Date Data Source [id number] 02/13/2019 07:13:00 AM [facility] Name Value Range Interpretation Description Data Sup porting Code Source(s) Document(s ) Monocytes 1.19 [place] [#/volume] in 10*3/uL Hospital Blood by Automated count ID Date Data Source [id number] 02/13/2019 07:13:00 AM EST [facility] Name Value Range Interpretation Description Data Sup porting Code Source(s) Document(s ) Lymphocytes 2.50 [place] [#/volume] in 10*3/uL Hospital Blood by Automated count ID Date Data Source [id number] 02/13/2019 07:13:00 AM EST [facility] Name Value Range Interpretation Description Data Sup porting Code Source(s) Document(s ) Neutrophils 10.93 [place] [#/volume] in 10*3/uL Hospital Blood by Automated count ID Date Data Source [id number] 02/13/2019 07:13:00 AM EST [facility] Name Value Range Interpretation Description Data Sup porting Code Source(s) Document(s ) Nucleated 0.0 % [place] erythrocytes/10 Hospital 0 leukocytes [Ratio] in Blood by Automated count ID Date Data Source [id number] 02/13/2019 07:13:00 AM EST [facility] Name Value Range Interpretation Description Data Sup porting Code Source(s) Document(s ) Immature 0.5 % [place] granulocytes/10 Hospital 0 leukocytes in Blood by Automated count ID Date Data Source [id number] 02/13/2019 07:13:00 AM EST [facility] Value Range Interpretation Description Data Sup porting Code Source(s) Document(s ) Basophils/100 0.1 % [place] leukocytes in Hospital Blood by Automated count ID Date Data Source [id number] 02/13/2019 07:13:00 AM EST [facility] Value Range Interpretation Description Data Sup porting Code Source(s) Document(s ) Eosinophils/100 0.0 % [place] leukocytes in Hospital Blood by Automated count ID Date Data Source [id number] 02/13/2019 07:13:00 AM [facility] Value Range Interpretation Description Data Sup porting Code Source(s) Document(s ) Monocytes/100 8.1 % [place] leukocytes in Hospital Blood by Automated count ID Date Data Source [id number] 02/13/2019 07:13:00 AM EST [facility] Name Value Range Interpretation Description Data Sup porting Code Source(s) Document(s ) Lymphocytes/10 17.0 % [place] 0 leukocytes Hospital in Blood by Automated count ID Date Data Source [id number] 02/13/2019 07:13:00 AM EST [facility] Name Value Range Interpretation Description Data Sup porting Code Source(s) Document(s ) Neutrophils/10 74.3 % [place] 0 leukocytes Hospital in Blood by Automated count ID Date Data Source [id number] 02/13/2019 07:13:00 AM [facility] Value Range Interpretation Description Data Sup porting Code Source(s) Document(s ) Platelet mean 10.1 fL [place] volume Hospital [Entitic volume] in Blood by Automated count ID Date Data Source [id number] 02/13/2019 07:13:00 AM [facility] Value Range Interpretation Description Data Sup porting Code Source(s) Document(s ) Platelets 311 [place] [#/volume] in 10*3/uL Hospital Blood by Automated count ID Date Data Source [id number] 02/13/2019 07:13:00 AM [facility] Value Range Interpretation Description Data Sup porting Code Source(s) Document(s ) Erythrocyte 13.2 % [facility] Hospital width [Ratio] by Automated count ID Date Data Source [id number] 02/13/2019 07:13:00 AM [facility] Value Range Interpretation Description Data Sup porting Code Source(s) Document(s ) Erythrocyte mean 32.5 [place] corpuscular g/dL Hospital hemoglobin concentration [Mass/volume] by Automated count ID Date Data Source [id number] 02/13/2019 07:13:00 AM [facility] Value Range Interpretation Description Data Sup porting Code Source(s) Document(s ) Erythrocyte 28.8 pg [facility] corpuscular hemoglobin [Entitic mass] by Automated count ID Date Data Source [id number] 02/13/2019 07:13:00 AM [facility] Value Range Interpretation Description Data Sup porting Code Source(s) Document(s ) Erythrocyte 88.5 fL [facility] corpuscular volume [Entitic volume] by Automated count ID Date Data Source [id number] 02/13/2019 07:13:00 AM [facility] Name Value Range Interpretation Description Data Sup porting Code Source(s) Document(s ) Hematocrit 29.2 % [place] [Volume Hospital Fraction] of Blood by Automated count ID Date Data Source [id number] 02/13/2019 07:13:00 AM [facility] Name Value Range Interpretation Description Data Sup porting Code Source(s) Document(s ) Hemoglobin 9.5 g/dL [place] [Mass/volume] Hospital in Blood ID Date Data Source [id number] 02/13/2019 07:13:00 AM [facility] Name Value Range Interpretation Description Data Sup porting Code Source(s) Document(s ) Erythrocytes 3.30 [place] [#/volume] in 10*6/uL Hospital Blood by Automated count ID Date Data Source [id number] 02/13/2019 07:13:00 AM [facility] Name Value Range Interpretation Description Data Sup porting Code Source(s) Document(s ) Leukocytes 14.7 [place] [#/volume] in 10*3/uL Hospital Blood by Automated count ID Date Data Source [id number] 02/12/2019 11:30:00 AM [facility] Data Abstractor:JOANNA BLOCK Name Value Range Interpretation Description Data Sup porting Code Source(s) Document(s ) Glucose 126 mg/dL [place] [Mass/volume] Hospital in Capillary blood by Glucometer ID Date Data Source [id number] 02/12/2019 06:20:00 AM [facility] Name Value Range Interpretation Description Data Sup porting Code Source(s) Document(s ) Choriogonadotropin NEGATIVE White ( test) [place] [Presence] in Urine Hospital ID Date Data Source [id number] 01/27/2019 12:00:00 AM EST [facility] ([facility], ) Name Value Range Interpretation Description Data Sup porting Code Source(s) Document(s ) INR 1.0 Normal (applies [facility] (St to non-numeric [facility] results) Medical, PC) Prothrombin 10.0 sec Normal (applies [facility] (St Time to non-numeric [facility] results) Medical, PC) aPTT 27 sec Normal (applies [facility] (St to non-numeric [facility] results) Medical, PC) ID Date Data Source [id number] 01/27/2019 12:00:00 AM EST [facility] ([facility], ) Name Value Range Interpretation Description Data Sup porting Code Source(s) Document(s ) Urea nitrogen 11 mg/dL Normal (applies [facility] (St [Mass/volume] in to non-numeric [facility] Serum or Plasma results) Medical, PC) Glucose 96 mg/dL Normal (applies [facility] (St [Mass/volume] in to non-numeric [facility] Urine collected for results) Medical, unspecified PC) duration Creatinine 0.63 Normal (applies [facility] (St [Interpretation] in mg/dL to non-numeric [facility] Urine results) Medical, PC) eGFR If NonAfricn 114 Normal (applies [facility] (St Am mL/min/1 to non-numeric [facility] .73 results) Medical, PC) BUN/Creatinine 17 Normal (applies [facility] (S t Ratio to non-numeric [facility] results) Medical, PC) eGFR If Africn Am 132 Normal (applies [facility] (St mL/min/1 to non-numeric [facility] .73 results) Medical, PC) Potassium 4.4 Normal (applies [facility] (St [Mass/volume] in mmol/L to non-numeric [facility] Blood results) Medical, PC) Sodium 140 Normal (applies [facility] (St [Moles/volume] in mmol/L to non-numeric [facility] Serum or Plasma results) Medical, PC) Carbon dioxide, 25 Normal (applies [facility] ( St total mmol/L to non-numeric [facility] [Moles/volume] in results) Medical, Serum or Plasma PC) Chloride 104 Normal (applies [facility] (St [Moles/volume] in mmol/L to non-numeric [facility] Serum or Plasma results) Medical, PC) Calcium 9.3 Normal (applies [facility] (St [Moles/volume] in mg/dL to non-numeric [facility] Urine collected for results) Medical, unspecified ) duration Microalbumin 4.3 g/dL Normal (applies [facility] (St [Mass/time] in to non-numeric [facility] Urine collected for results) Medical, unspecified ) duration Protein 6.8 g/dL Normal (applies [facility] (St [Mass/volume] in to non-numeric [facility] Serum or Plasma results) Medical, ) A/G Ratio 1.7 Normal (applies [facility] (St to non-numeric [facility] results) Medical, ) Globulin, Total 2.5 g/dL Normal (applies [facility] ( St to non-numeric [facility] results) Medical, ) Aspartate 16 IU/L Normal (applies [facility] (St aminotransferase to non-numeric [facility] [Enzymatic results) Medical, activity/volume] in ) Serum or Plasma Alkaline 60 IU/L Normal (applies [facility] (St phosphatase to non-numeric [facility] [Enzymatic results) Medical, activity/volume] in ) Serum, Plasma or Blood Bilirubin.total <0.2 Normal (applies [facility] ( St [Mass/volume] in to non-numeric [facility] Serum or Plasma results) Medical, ) Alanine 26 IU/L Normal (applies [facility] (St aminotransferase to non-numeric [facility] [Enzymatic results) Medical, activity/volume] in ) Serum or Plasma ID Date Data Source [id number] 01/27/2019 12:00:00 AM EST [facility] ([facility], ) Name Value Range Interpretation Description Data Sup porting Code Source(s) Document(s ) Erythrocytes 4.40 Normal (applies [facility] (St [#/volume] in x10E6/uL to non-numeric [facility] Blood by results) Medical, ) Automated count Leukocytes 5.9 Normal (applies [facility] (St [#/volume] in x10E3/uL to non-numeric [facility] Blood by results) Medical, ) Automated count Hematocrit 37.7 % Normal (applies [facility] (St [Volume to non-numeric [facility] Fraction] of results) Medical, ) Blood by Automated count Hemoglobin 12.5 Normal (applies [facility] (St [Mass/volume] in g/dL to non-numeric [facility] Blood results) Medical, ) MCV 86 fL Normal (applies [facility] (St to non-numeric [facility] results) [facility], ) MCH 28.4 pg Normal (applies [facility] (St to non-numeric [facility] results) [facility], ) RDW 13.4 % Normal (applies [facility] (St to non-numeric [facility] results) [facility], ) MCHC 33.2 Normal (applies [facility] (St g/dL to non-numeric [facility] results) [facility], ) Platelets 374 Normal (applies [facility] (St [#/area] in x10E3/uL to non-numeric [facility] Blood by results) [facility], ) Microscopy high power field Lymphs 39 % Normal (applies [facility] (St to non-numeric [facility] results) [facility], ) Neutrophils [#] 54 % Normal (applies [facility] ( St in Body fluid by to non-numeric [facility] Manual count results) [facility], ) Eos 1 % Normal (applies [facility] (St to non-numeric [facility] results) [facility], ) Monocytes 6 % Normal (applies [facility] (St [#/volume] in to non-numeric [facility] Cord blood results) [facility], ) Basos 0 % Normal (applies [facility] (St to non-numeric [facility] results) [facility], ) Neutrophils 3.2 Normal (applies [facility] (St (Absolute) x10E3/uL to non-numeric [facility] results) [facility], ) Monocytes(Absolu 0.4 Normal (applies [facility] (St te) x10E3/uL to non-numeric [facility] results) [facility], ) Lymphs 2.3 Normal (applies [facility] (St (Absolute) x10E3/uL to non-numeric [facility] results) [facility], ) Eos (Absolute) 0.1 Normal (applies [facility] (S t x10E3/uL to non-numeric [facility] results) [facility], ) Immature 0 % Normal (applies [facility] (St Granulocytes to non-numeric [facility] results) [facility], ) Baso (Absolute) 0.0 Normal (applies [facility] ( St x10E3/uL to non-numeric [facility] results) [facility], ) Immature Grans 0.0 Normal (applies [facility] (S t (Abs) x10E3/uL to non-numeric [facility] results) [facility], ) ID Date Data Source [id number] 10/07/2018 12:00:00 AM EDT [facility] ([facility], ) Name Value Range Interpretation Description Data Sup porting Code Source(s) Document(s ) Helicobacter Negative Normal (applies [facility] (St pylori Ag to non-numeric [facility] [Presence] in results) Medical, ) Stool by Immunoassay ID Date Data Source [id number] 08/26/2018 12:00:00 AM EDT [facility] ([facility], ) Name Value Range Interpretation Code Description Data Lindsey rce(s) Supporting Document(s ) Ferritin, 89 ng/mL Normal (applies to [facility] (St Serum non-numeric [facility] results) Medical, ) ID Date Data Source [id number] 08/26/2018 12:00:00 AM EDT [facility] ([facility], ) Name Value Range Interpretation Description Data Sup porting Code Source(s) Document(s ) Magnesium 2.0 mg/dL Normal (applies [facility] (St [Mass/volume] to non-numeric [facility] in Urine results) Medical, ) collected for unspecified duration ID Date Data Source [id number] 08/26/2018 12:00:00 AM EDT [facility] ([facility], ) Name Value Range Interpretation Description Data Sup porting Code Source(s) Document(s ) Deprecated 3.2 mg/dL Normal (applies to [facility] (St Phosphorus non-numeric [facility] [Mass/time] in results) Medical, ) 24 hour Urine ID Date Data Source [id number] 08/26/2018 12:00:00 AM EDT [facility] ([facility], ) Name Value Range Interpretation Description Data Sup porting Code Source(s) Document(s ) Vitamin D, 25.0 Below low normal [facility] (St 25-Hydroxy ng/mL [facility], ) ID Date Data Source [id number] 08/26/2018 12:00:00 AM EDT [facility] ([facility], ) Name Value Range Interpretation Description Data Sup porting Code Source(s) Document(s ) Hemoglobin 5.5 % Normal (applies to [facility] (St A1c/Hemoglobin. non-numeric [facility] total in Blood results) Medical, ) ID Date Data Source [id number] 08/26/2018 12:00:00 AM EDT [facility] ([facility], ) Name Value Range Interpretation Description Data Sup porting Code Source(s) Document(s ) Vitamin B12 399 pg/mL Normal (applies to [facility] (S t non-numeric [facility] results) [facility], ) Folate 12.8 Normal (applies to [facility] (St (Folic ng/mL non-numeric [facility] Acid), Serum results) [facility], ) ID Date Data Source [id number] 08/26/2018 12:00:00 AM EDT [facility] ([facility], ) Name Value Range Interpretation Description Data Sup porting Code Source(s) Document(s ) Iron 348 ug/dL Normal (applies to [facility] (St Bind.Cap.(TIBC non-numeric [facility] ) results) [facility], ) UIBC 269 ug/dL Normal (applies to [facility] (St non-numeric [facility] results) [facility], ) Iron 79 ug/dL Normal (applies to [facility] (St [Mass/volume] non-numeric [facility] in Serum or results) Medical, ) Plasma Iron 23 % Normal (applies to [facility] (St saturation non-numeric [facility] [Mass results) [facility], ) Fraction] in Serum or Plasma ID Date Data Source [id number] 08/26/2018 12:00:00 AM EDT [facility] ([facility], ) Name Value Range Interpretation Description Data Sup porting Code Source(s) Document(s ) Triglyceride 130 Normal (applies [facility] (St [Mass/volume] in mg/dL to non-numeric [facility] Serum or Plasma results) Medical, ) Cholesterol 178 Normal (applies [facility] (St [Mass/volume] in mg/dL to non-numeric [facility] Serum or Plasma results) [facility], ) HDL Cholesterol 46 mg/dL Normal (applies [facility] ( St to non-numeric [facility] results) [facility], ) VLDL Cholesterol 26 mg/dL Normal (applies [facility] (St [place] to non-numeric [facility] results) [facility], ) LDL Cholesterol 106 Above high normal [facility] (St Calc mg/dL [facility], ) ID Date Data Source [id number] 08/26/2018 12:00:00 AM EDT [facility] ([facility], ) Name Value Range Interpretation Description Data Sup porting Code Source(s) Document(s ) RBC None seen Normal (applies [facility] (St to non-numeric [facility] results) Medical, PC) Epithelial 0-10 Normal (applies [facility] (St Cells (non to non-numeric [facility] renal) results) Medical, PC) WBC 0-5 Normal (applies [facility] (St to non-numeric [facility] results) [facility], [facility]) Mucus Threads Present Normal (applies [facility] (St to non-numeric [facility] results) [facility], [facility]) Bacteria Few Normal (applies [facility] (St [Presence] in to non-numeric [facility] Prostatic results) Medical, PC) fluid by Light microscopy ID Date Data Source [id number] 08/26/2018 12:00:00 AM EDT [facility] ([facility], ) Name Value Range Interpretation Description Data Sup porting Code Source(s) Document(s ) Specific gravity 1.013 Normal (applies [facility] (St of Pericardial to non-numeric [facility] fluid by results) Medical, Refractometry PC) pH of Lower 6.0 Normal (applies [facility] (St respiratory to non-numeric [facility] specimen results) [facility], PC) Urine-Color Yellow Normal (applies [facility] (St to non-numeric [facility] results) [facility], PC) Appearance of Clear Normal (applies [facility] (St Abdomen to non-numeric [facility] results) Medical, PC) WBC Esterase Negative Normal (applies [facility] (St to non-numeric [facility] results) [facility], PC) Ketones Negative Normal (applies [facility] (St [Presence] in to non-numeric [facility] Blood by Tablet results) Medical, PC) Protein Negative Normal (applies [facility] (St [Mass/volume] in to non-numeric [facility] Lower results) Medical, respiratory PC) specimen Glucose Negative Normal (applies [facility] (St [Mass/volume] in to non-numeric [facility] Urine collected results) Medical, for unspecified PC) duration Occult Blood Negative Normal (applies [facility] (St to non-numeric [facility] results) [facility], PC) Bilirubin Negative Normal (applies [facility] (St [Presence] in to non-numeric [facility] Peritoneal fluid results) Medical, PC) Urobilinogen,Gabriele 0.2 EU/dL Normal (applies [facility] (St i-Qn to non-numeric [facility] results) Medical, PC) Nitrite, Urine Negative Normal (applies [facility] (S t to non-numeric [facility] results) Medical, PC) Microscopic See below: Normal (applies [facility] (St Examination to non-numeric [facility] results) [facility], PC) ID Date Data Source [id number] 08/26/2018 12:00:00 AM EDT [facility] ([facility]) Name Value Range Interpretation Description Data Sup porting Code Source(s) Document(s ) Glucose 98 mg/dL Normal (applies [facility] (St [Mass/volume] in to non-numeric [facility] Urine collected for results) Medical, unspecified PC) duration Creatinine 0.65 Normal (applies [facility] (St [Interpretation] in mg/dL to non-numeric [facility] Urine results) Medical, PC) Urea nitrogen 12 mg/dL Normal (applies [facility] (St [Mass/volume] in to non-numeric [facility] Serum or Plasma results) Medical, ) eGFR If Africn Am 130 Normal (applies [facility] (St mL/min/1 to non-numeric [facility] .73 results) Medical, PC) eGFR If NonAfricn 113 Normal (applies [facility] (St Am mL/min/1 to non-numeric [facility] .73 results) Medical, PC) Potassium 4.9 Normal (applies [facility] (St [Mass/volume] in mmol/L to non-numeric [facility] Blood results) Medical, PC) Sodium 138 Normal (applies [facility] (St [Moles/volume] in mmol/L to non-numeric [facility] Serum or Plasma results) Medical, PC) BUN/Creatinine 18 Normal (applies [facility] (S t Ratio to non-numeric [facility] results) Medical, PC) Carbon dioxide, 22 Normal (applies [facility] ( St total mmol/L to non-numeric [facility] [Moles/volume] in results) Medical, Serum or Plasma PC) Chloride 103 Normal (applies [facility] (St [Moles/volume] in mmol/L to non-numeric [facility] Serum or Plasma results) Medical, PC) Calcium 9.8 Normal (applies [facility] (St [Moles/volume] in mg/dL to non-numeric [facility] Urine collected for results) Medical, unspecified PC) duration Protein 7.0 g/dL Normal (applies [facility] (St [Mass/volume] in to non-numeric [facility] Serum or Plasma results) Medical, ) Microalbumin 4.2 g/dL Normal (applies [facility] (St [Mass/time] in to non-numeric [facility] Urine collected for results) [facility], unspecified ) duration Globulin, Total 2.8 g/dL Normal (applies [facility] ( St to non-numeric [facility] results) Medical, ) Alkaline 56 IU/L Normal (applies [facility] (St phosphatase to non-numeric [facility] [Enzymatic results) Medical, activity/volume] in ) Serum, Plasma or Blood A/G Ratio 1.5 Normal (applies [facility] (St to non-numeric [facility] results) Medical, ) Bilirubin.total 0.2 Normal (applies [facility] ( St [Mass/volume] in mg/dL to non-numeric [facility] Serum or Plasma results) Medical, ) Aspartate 14 IU/L Normal (applies [facility] (St aminotransferase to non-numeric [facility] [Enzymatic results) Medical, activity/volume] in PC) Serum or Plasma Alanine 23 IU/L Normal (applies [facility] (St aminotransferase to non-numeric [facility] [Enzymatic results) Medical, activity/volume] in ) Serum or Plasma ID Date Data Source [id number] 08/26/2018 12:00:00 AM EDT [facility] ([facility], ) Name Value Range Interpretation Description Data Sup porting Code Source(s) Document(s ) Erythrocytes 4.52 Normal (applies [facility] (St [#/volume] in x10E6/uL to non-numeric [facility] Blood by results) Medical, ) Automated count Leukocytes 7.8 Normal (applies [facility] (St [#/volume] in x10E3/uL to non-numeric [facility] Blood by results) Medical, ) Automated count Hemoglobin 12.8 Normal (applies [facility] (St [Mass/volume] in g/dL to non-numeric [facility] Blood results) Medical, ) MCV 88 fL Normal (applies [facility] (St to non-numeric [facility] results) Medical, ) Hematocrit 39.8 % Normal (applies [facility] (St [Volume to non-numeric [facility] Fraction] of results) Medical, ) Blood by Automated count MCHC 32.2 Normal (applies [facility] (St g/dL to non-numeric [facility] results) [facility], ) MCH 28.3 pg Normal (applies [facility] (St to non-numeric [facility] results) [facility], ) Platelets 368 Normal (applies [facility] (St [#/area] in x10E3/uL to non-numeric [facility] Blood by results) [facility], ) Microscopy high power field Neutrophils [#] 58 % Normal (applies [facility] ( St in Body fluid by to non-numeric [facility] Manual count results) [facility], ) RDW 13.6 % Normal (applies [facility] (St to non-numeric [facility] results) [facility], ) Lymphs 36 % Normal (applies [facility] (St to non-numeric [facility] results) [facility], ) Monocytes 5 % Normal (applies [facility] (St [#/volume] in to non-numeric [facility] Cord blood results) [facility], ) Eos 1 % Normal (applies [facility] (St to non-numeric [facility] results) [facility], ) Basos 0 % Normal (applies [facility] (St to non-numeric [facility] results) [facility], ) Monocytes(Absolu 0.4 Normal (applies [facility] (St te) x10E3/uL to non-numeric [facility] results) [facility], ) Lymphs 2.8 Normal (applies [facility] (St (Absolute) x10E3/uL to non-numeric [facility] results) [facility], ) Neutrophils 4.6 Normal (applies [facility] (St (Absolute) x10E3/uL to non-numeric [facility] results) [facility], ) Eos (Absolute) 0.1 Normal (applies [facility] (S t x10E3/uL to non-numeric [facility] results) [facility], ) Baso (Absolute) 0.0 Normal (applies [facility] ( St x10E3/uL to non-numeric [facility] results) [facility], ) Immature 0 % Normal (applies [facility] (St Granulocytes to non-numeric [facility] results) [facility], ) Immature Grans 0.0 Normal (applies [facility] (S t (Abs) x10E3/uL to non-numeric [facility] results) [facility], ) ID Date Data Source [id number] 08/26/2018 12:00:00 AM EDT [facility] ([facility], ) Name Value Range Interpretation Code Description Data Lindsey rce(s) Supporting Document(s ) T4,Free(D 1.21 ng/dL Normal (applies to [facility] (St irect) non-numeric [facility]'s results) [facility]) TSH 1.790 Normal (applies to [facility] (St uIU/mL non-numeric [facility]'s results) [facility], ) Procedure Social History Code Duration Value Status Description Data Source(s ) 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 DGEN (St 12:00:00 AM EDT Non alcohol Non Non alcohol N on [facility], smoker smoker ) Smoking 10/21/2019 Unknown if ever completed Unknown if ever MEDG EN (St 12:00:00 AM ED[place] [facility] [place] Smoking 06/26/2019 Ex-smoker completed Ex-smoker [place] 12:56:00 AM EDT (finding) (finding) Hospital Smoking 02/12/2019 Ex-smoker completed Ex-smoker [place] 06:27:00 AM EST (finding) (finding) Hospital Smoking 08/21/2018 Former Smoker completed Former Smoker eCW3 ( [facility] 12:[facility]:00 AM EDT [facility]) Former Smoker completed Former Smoker eCW3 ([facility]) Vital Signs ID Date Data Source UNK Name Value Range Interpretation Code Description Data Source(s) Heart rate 80 /min 80 /min [facility] ([facility] [place], ) Respiratory rate 15 /min 15 /min [facility] ( [facility]) Body mass index 40.4 kg/m2 40.4 kg/m2 [facility] ([facility] t (BMI) [Ratio] [facility]) Diastolic blood 82 mm[Hg] 82 mm[Hg] [facility] (S t pressure [facility]) Systolic blood 134 mm[Hg] 134 mm[Hg] [facility] ([facility] [place]) Body weight 258 lb 258 lb [facility] ([facility]) Body height 67 in 67 in [facility] ([facility]) Diastolic blood 75 mm[Hg] 75 mm[Hg] [facility] Systolic blood 116 mm[Hg] 116 mm[Hg] [facility] Respiratory rate 18 /min 18 /[facility] Heart rate 75 /min 75 /min [facility] Body temperature 36.08866 [id number] [facility] Body temperature 98.3 [degF] 98.3 [degF] [facility] Body mass index 39.0 kg/m2 39.0 kg/m2 [facility] (BMI) [Ratio] Hospital Body weight 250.53 250.53 [lb_av] [facility] [lb_av] Hospital Body temperature 36.23670 [id number] [facility] Body temperature 98.5 [degF] 98.5 [degF] [facility] Diastolic blood 70 mm[Hg] 70 mm[Hg] [facility] pressure Hospital Systolic blood 103 mm[Hg] 103 mm[Hg] [facility] pressure Hospital Respiratory rate 18 /min 18 /min [facility] Heart rate 112 /min 112 /min [facility] Body mass index 39.2 kg/m2 39.2 kg/m2 [facility] (BMI) [Ratio] Hospital Body weight 250 [lb_av] 250 [lb_av] [facility] Heart rate 70 /min 70 /min [facility] ([facility]) Inhaled oxygen 100 % 100 % [facility] ([facility]) Body mass index 40.4 kg/m2 40.4 kg/m2 [facility] (S t (BMI) [Ratio] [facility]) Diastolic blood 82 mm[Hg] 82 mm[Hg] [facility] [place] [facility] [place]stolic blood 122 mm[Hg] 122 mm[Hg] [facility] ([facility]) Body weight 258 lb 258 lb [facility] ([facility]) Body height 67 in 67 in [facility] ([facility]) Heart rate 78 /min 78 /min [facility] ([facility]) Inhaled oxygen 99 % 99 % [facility] ([facility]) Body mass index 40.4 kg/m2 40.4 kg/m2 [facility] (S t (BMI) [Ratio] [facility]) Diastolic blood 68 mm[Hg] 68 mm[Hg] [facility] [place] [facility] [place] Systolic blood 112 mm[Hg] 112 mm[Hg] [facility] ([facility]) Body weight 258 lb 258 lb [facility] ([facility]) Body height 67 in in [facility] ([facility]) Heart rate 73 /min 73 /min [facility] ([facility]) Inhaled oxygen 99 % 99 % [facility] ([facility]) Body mass index 40.2 kg/m2 40.2 kg/m2 [facility] (S t (BMI) [Ratio] [facility]) Diastolic blood 68 mm[Hg] 68 mm[Hg] [facility] (S [facility] [place]) Systolic blood 108 mm[Hg] 108 mm[Hg] [facility] ([facility]) Body weight 257 lb 257 lb [facility] ([facility]) Body height 67 in in [facility] ([facility]) Heart rate 72 /min 72 /min [facility] ([facility]) Respiratory rate 16 /min 16 /min [facility] ( [facility]) Inhaled oxygen 99 % 99 % [facility] ([facility]) Body mass index 40.6 kg/m2 40.6 kg/m2 [facility] (S t (BMI) [Ratio] [facility]) Diastolic blood 60 mm[Hg] 60 mm[Hg] [facility] (S [facility] [place]) Systolic blood 99 mm[Hg] 99 mm[Hg] [facility] ([facility]) Body weight 259 lb 259 lb [facility] ([facility]) Body height 67 in in [facility] ([facility]) Diastolic blood 71 mm[Hg] 71 mm[Hg] eCW3 ([facility]) Systolic blood 104 mm[Hg] 104 mm[Hg] eCW3 ([facility]) Body temperature 98.5 [degF] 98.5 [degF] eCW3 ( [facility]) Heart rate 20 /min 20 /min eCW3 ([facility]) Body mass index 40.98 kg/m2 40.98 kg/m2 eCW3 ([facility] (BMI) [Ratio] [facility]) Body weight 252 [lb_av] 252 [lb_av] eCW3 ([facility]) Body height 65.75 65.75 [in_i] eCW3 ([facility] [in_i] [facility]) Patient Treatment Plan of Care Planned Activity Planned Date Details Description Data Source (s) Fluconazole 150 MG Oral 08/21/2018 12:00:00 eCW3 ([facility] Tablet AM [facility]) NITROFURANTOIN, 08/21/2018 12:00:00 eCW3 ([facility] MACROCRYSTALS 25 MG / AM [facility]) Nitrofurantoin, Monohydrate 75 MG Oral Capsule [Macrobid]
[2019-12-27 20:12] LABS: BASO % 1.1 % (0-2.0); EOS % 1.1 % (0-4.5); HEMATOCRIT 37.9 % (32.4-45.2); HEMOGLOBIN 12.2 GM/dl (10.7-15.3); LYMPH % 36.4 % (8-40); MCH 28.6 pg (25.7-33.7); MCHC 32.3 g/dl (32.0-36.0); MEAN CELL VOLUME 88.5 fl (80-96); MEAN PLT VOLUME 8.5 fl (7.5-11.1); MONO % 9.4 % (3.8-10.2); PLATELET COUNT 398 K/MM3 (134-434); RBC 4.28 M/mm3 (3.60-5.2); RDW 13.1 % (11.6-15.6); WHITE BLOOD COUNT 7.6 K/mm3 (4.0-10.8)
[2019-12-27 20:18] LABS: ALBUMIN 3.7 g/dl (3.4-5.0); BILIRUBIN,TOTAL 0.4 mg/dl (0.2-1); CREATININE 0.8 mg/dl (0.55-1.3); POTASSIUM 3.6 mmol/L (3.5-5.1); TOT PROT 6.9 g/dl (6.4-8.2)
[2019-12-27 20:21] LABS: EPITHELIAL CELLS FEW /hpf; URINE MUCUS 1+
== END 2019-12-27 22:50 | disposition home or self-care (01) ==
LOC: FER 19:30
PROC: 3E0333Z Introduction of Anti-inflammatory into Peripheral Vein, Percutaneous Approach (ICD-10-PCS; principal; 2019-12-27)
PROC: 3E033GC Introduction of Other Therapeutic Substance into Peripheral Vein, Percutaneous Approach (ICD-10-PCS; 2019-12-27)
PROC: 3E0337Z Introduction of Electrolytic and Water Balance Substance into Peripheral Vein, Percutaneous Approach (ICD-10-PCS; 2019-12-27)
DX: R10.10 Upper abdominal pain, unspecified (principal)
CPT/HCPCS: 36415; 74176-TC; 80053; 81003; 81015; 84703; 85025; 87077; 87086; 99284-25